=== PATIENT | female | born 1940 | race Caucasian/White ===

== ENCOUNTER 2021-01-14 00:33 | Emergency (ER) | payer MEDICARE, MEDICAID, SELFPAY ==
[2021-01-14 00:42] VITALS: BP 110/70; BP 116/54; PULSE 98; RESP 18; TEMP 36.9; O2SAT 94; O2SAT 97; BMI 23.3
[2021-01-14 01:05] VITALS: BP 116/54; PULSE 100; RESP 16; TEMP 36.9; O2SAT 97
[2021-01-14 02:23] VITALS: BP 85/44; PULSE 94; RESP 14; TEMP 36.8; O2SAT 96
[2021-01-14 05:10] LABS: Basophils Percent Auto 0.5 % (0-2); MANUAL DIFF FLAG SCAN; Mean Corpuscular Hemoglobin 28.5 pg (27.0-33.0); PLT CLUMP 1; SCAN SMEAR FLAG 1
[2021-01-14 05:11] LABS: Appearance Urine CLEAR; Color Urine YELLOW; Glucose Urine UA NEG (NEG); Leukocyte Esterase Urine TRACE (NEG); Nitrite Urine NEG (NEG); Specific Gravity - Urine <= 1.005 (1.005-1.025); UACC Culture Trigger YES; Urine Blood NEG (NEG); Urine Ketones NEG (NEG); Urine Protein NEG (NEG-TRACE)
[2021-01-14 05:12] LABS: Basophils Absolute Auto 0.1 X10*3/uL (0.0-0.2); Eosinophils Absolute Auto 0.4 X10*3/uL (0.0-0.4); Eosinophils Percent Auto 3.2 % (0-4); Hematocrit 38.7 % (37-47); Hemoglobin 12.8 g/dl (12.0-16.0); Imm Gran Abs Auto 0.03 X10*3/uL (0.00-0.03); Imm Gran Pct Auto 0.3 % (0.0-0.4); Lymphocytes Absolute Auto 1.5 X10*3/uL (1.2-4.9); Lymphocytes Percent Auto 13.2 % (20-40); Mean Corpuscular HGB Conc 33.1 g/dl (31.0-35.0); Mean Corpuscular Volume 86.2 fL (80-98); Mean Platelet Volume 10.9 fL (9.4-12.3); Monocytes Absolute Auto 0.8 X10*3/uL (0.1-1.2); Neutrophils Absolute Auto 8.3 X10*3/uL (2.0-8.3); Neutrophils Percent Auto 75.8 % (45-73); Platelet Count 154 X10*3/uL (160-400); Red Blood Count 4.49 X10*6/uL (4.20-5.50); Red Cell Distribution Width 15.4 % (11.0-16.0)
[2021-01-14 05:17] LABS: Bacteria Urine 2+ /LPF; Mucus Urine 1+ /LPF; Squamous Epithelial Cell Urine 1+ /LPF
[2021-01-14 05:26] LABS: Alanine Aminotransferase 11 U/L (0-31); Albumin Level 3.8 g/dL (3.5-5.0); Alkaline Phosphatase 102 U/L (39-117); Anion Gap 13 (12-20); Aspartate Amino Transferase 17 U/L (5-31); Bilirubin Total 0.3 mg/dL (0.0-1.0); Blood Urea Nitrogen 18 mg/dL (9-16); Calcium 9.3 mg/dL (8.4-10.2); Carbon Dioxide 28 mmol/L (22-29); Chloride 108 mmol/L (96-108); Estimated Glomerular Filt Rate > 60; Glucose Random 105 mg/dL (60-115); Lipase 12 U/L (8-78); Potassium 3.9 mmol/L (3.3-5.1); Sodium 145 mmol/L (135-145); Total Protein 6.9 g/dL (6.5-8.0)
[2021-01-14 05:34] LABS: SLIDE REVIEW VERIFIED
[2021-01-14 05:40] VITALS: BP 129/61; PULSE 104; RESP 18; O2SAT 97
--- NOTE | 2021-01-14 06:00 | ED_ITS ---
HPI - Abdominal Pain General Chief Complaint: Abdominal Pain Stated Complaint: abd pain Time Seen by Provider: 01/14/21 05:52 Source: patient Mode of arrival: EMS Limitations: other (Dementia) History of Present Illness HPI narrative: 80-year-old female who was sent to the emergency department from her long-term for evaluation of vomiting and abdominal pain. As reported that the patient had 2 episodes of emesis. The patient did tell me that she vomited several times today. She is also complaining abdominal pain. She points to epigastric area when asked to localize the pain. She cannot describe the charac ter or intensity of the pain. She told me that her medications make her mouth very dry and this causes her to vomit. The patient had no other reported symptoms from the long-term. Related Data Allergies Allergy/AdvReac Type Severity Reaction Status Date / Time No Known Allergies Allergy Unverified 12/26/19 15:07 [No Known Allergies*] Review of Systems Review of Systems Yes Unobtainable due to mental status Physical Exam Vital Signs: Vital Signs: Last Vital Signs Temp 98.3 F 01/14/21 02:23 Pulse 104 H 01/14/21 05:40 Resp 18 01/14/21 05:40 BP 129/61 01/14/21 05:40 Pulse Ox 97 01/14/21 05:40 Body Mass Index 23.3 Const: Other: Awake, alert, elderly female, does not appear to be in distress, she is pleasant and cooperative. She is oriented to person but not place or time. HENMT: Head: Yes normal to inspection, Yes normocephalic and Yes atraumatic Ears: external ears normal General nose exam: Normal external nose present Face and sinus: Yes normal facial exam Mouth: Normal oral and palatal mucosa present Teeth and gingiva: edentulous Throat: Yes posterior oropharynx normal Eyes: General: appearance normal, both eyes and all related structures Pu pils: Equal, round and reactive pupils present Neck: Neck: Yes normal visual inspection, Yes no lymphadenopathy, Yes trachea midline and Yes supple Chest: Chest palpation & inspection: normal inspection of the chest and normal palpation of entire chest wall Resp: Effort & Inspection: normal respiratory effort and able to speak in complete sentences Auscultation: clear to auscultation bilaterally Cardio: Rate: regular rate Rhythm: regular rhythm Heart sounds: S1 normal heart sound present, S2 normal heart sound present and no murmurs GI: Inspection: Yes normal to inspection Palpation (GI): Soft to palpation, nontender and no guarding Auscultation: normal bowel sounds : General: Yes no CVA tenderness Back/Spine/Pelvis: Back: no CVA tenderness Skin: General skin exam: no rashes or lesions noted Neuro: Cranial nerves: Yes CN's II-XII intact bilaterally and Yes Equal, round and reactive pupils present Motor exam (neuro): 5/5 motor strength present throughout Extrem: General: Yes normal to inspection Psych: Appearance: grossly normal Attitude: cooperative Course Course Course Narrative: 80-year-old female with history of dementia and multiple other medical issues who was sent to the emergency department from her long-term for evaluation of several episodes of vomiting and abdominal pain. The patient's vital signs were unremarkable. Physical examination revealed no abdominal tenderness. Laboratory evaluation included a CBC, CMP, lipase and urinalysis. These tests were unremarkable. At this time I suspect the patient may be vomiting secondary to her GERD or secondary to an acute viral illness. The patient was given Zofran 4 mg ODT. She was able to drink fluid. She was discharged home. MDM - Abdominal Pain Lab Data Result diagrams: 01/14/21 05:05 01/14/21 05:05 Labs: Lab Results 01/14/21 01/14/21 01/14/21 Range/Units 05:05 05:05 05:05 WBC 11.0 H (4.8-10.8) X10*3/uL RBC 4.49 (4.20-5.50) X10*6/uL Hgb 12.8 (12.0-16.0) g/dl Hct 38.7 (37-47) % MCV 86.2 (80-98) fL MCH 28.5 (27.0-33.0) pg MCHC 33.1 (31.0-35.0) g/dl RDW 15.4 (11.0-16.0) % Plt Count 154 L (160-400) X10*3/uL MPV 10.9 (9.4-12.3) fL Immature Gran % (Auto) 0.3 (0.0-0.4) % Neut % (Auto) 75.8 H (45-73) % Lymph % (Auto) 13.2 L (20-40) % [place] % (Auto) 7.0 (2-11) % Eos % (Auto) 3.2 (0-4) % Baso % (Auto) 0.5 (0-2) % Lymph # (Auto) 1.5 (1.2-4.9) X10*3/uL [place] # (Auto) 0.8 (0.1-1.2) X10*3/uL Eos # (Auto) 0.4 (0.0-0.4) X10*3/uL Baso # (Auto) 0.1 (0.0-0.2) X10*3/uL Abs Immat Gran (auto) 0.03 (0.00-0.03) X10*3/uL Absolute Neuts (auto) 8.3 (2.0-8.3) X10*3/uL Absolute Nucleated RBC 0.000 (0.0-0.012) X10*3/uL Nucleated RBC % (auto) 0.0 (0.0-0.2) /100WBC Smear Tech's Comments VERIFIED Sodium 145 (135-145) mmol/L Potassium 3.9 (3.3-5.1) mmol/L Chloride 108 (96-108) mmol/L Carbon Dioxide 28 (22-29) mmol/L Anion Gap 13 (12-20) BUN 18 H (9-16) mg/dL Creatinine 0.82 (0.5-1.4) mg/dL Estim Creat Clear Calc 52.0 Estimated GFR > 60 Random Glucose 105 (60-115) mg/dL Calcium 9.3 (8.4-10.2) mg/dL Total Bilirubin 0.3 (0.0-1.0) mg/dL AST 17 (5-31) U/L ALT 11 (0-31) U/L Alkaline Phosphatase 102 (39-117) U/L Total Protein 6.9 (6.5-8.0) g/dL Albumin 3.8 (3.5-5.0) g/dL Lipase 12 (8-78) U/L Urine Color YELLOW Urine Appearance CLEAR Urine pH 6.0 (5.0-8.0) Ur Specific [place] <= 1.005 (1.005-1.025) Urine Protein NEG (NEG-TRACE) MG/DL Urine Glucose (UA) NEG (NEG) MG/DL Urine Ketones NEG (NEG) MG/DL Urine Blood NEG (NEG) Urine Nitrite NEG (NEG) Ur Leukocyte Esterase TRACE H (NEG) Urine RBC 1-4 (0) /HPF Urine WBC 5-9 H (0-4) /HPF Ur Squamous Epith Cells 1+ /LPF Urine Bacteria 2+ /LPF Urine Mucus 1+ /LPF Discharge Plan Discharge Clinical Impression: Vomiting, Gastritis Patient Disposition: Home, Self-Care Instructions: Gastritis (ED) Additional Instructions: You had a CBC, CMP, lipase and urinalysis. All these tests were normal which is reassuring. Your vomiting is most likely due to inflammation of your stomach (gastritis). Your nausea and vomiting was treated with Zofran (ondansetron) 4 mg pills, 1 pill dissolved in your mouth. Continue taking medications as prescribed by your providers. Follow-up with your doctor in 2 days. Please return to the emergency department if your symptoms get worse or if you develop any symptoms that are concerning to you. 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 Social history: Patient denies tobacco and alcohol use. Medical History Dementia Social History Social History Advance Directives: No Advance Directives Information Provided: No
[2021-01-14] MEDS: Ondansetron ODT 4 MG TAB.RAPDIS TRANSLINGU (06:22)
--- NOTE | 2021-01-14 07:19 | PC.NURSE ---
KUMAR AVILEZ ([facility], ) CALLED [facility] AND WAS UPDATED ON PT STATUS OF RETURNING TO [facility] AT [address] [place] [address] VIA AMBULANCE. NURSE TO FACILITY REPORT WAS GIVEN TO KUMAR AVILEZ BY THIS RN. [facility] PHONE NUMBER IS [phone]. PT AWARE OF PLAN OF CARE FOR D/C HOME.
== END 2021-01-14 09:06 | disposition home or self-care (01) ==
PROVIDERS: Emergency Provider Emergency Medicine Emergency Medical Services; PCP Internal Medicine Endocrinology, Diabetes & Metabolism
DX: K29.70 Gastritis, unspecified, without bleeding (principal); E11.9 Type 2 diabetes mellitus without complications; F03.90 Unspecified dementia, unspecified severity, without behavioral disturbance, psychotic disturbance, mood disturbance, and anxiety; K21.9 Gastro-esophageal reflux disease without esophagitis
CPT/HCPCS: 36415; 80053; 81001; 83690; 85025; 87086; 99283; 99284

== ENCOUNTER 2022-01-28 18:31 | Observation (INO) | payer MEDICARE, MEDICAID, SELFPAY ==
--- NOTE | ~2022-01-28 | CT_ITS ---
EXAMINATION: NONCONTRAST MAXILLOFACIAL CT INDICATION INFORMATION: Left mouth swelling, probable angioedema COMPARISON: None TECHNIQUE: Noncontrast CT examination of the maxillofacial bones was performed. Coronal and sagittal images were created for each examination at the technologist workstation. This CT examination was performed using dose optimization techniques as appropriate, variously including the following: *Automated exposure control *Adjustment of mA and/or kV according to patient size (this includes techniques or standardized protocols for targeted exams where dose is matched to indication/reason for exam; i.e. extremities or head) *Use of iterative reconstruction technique DLP: 465 mGy-cm FINDINGS: Exam quality degraded solid by mild motion artifact. MAXILLOFACIAL: No acute facial bone fractures are seen. Complete opacification of the maxillary sinuses. Minimal mucosal thickening in the ethmoid air cells Paranasal sinuses otherwise normally aerated. The mandibular heads are normally positioned in the glenoid fossa. The patient is edentulous. Motion artifact through the mandible. No definite mandibular fracture. There is pronounced soft tissue swelling along the left side of the patient's lips and soft tissues overlying the left mandible. No appreciable loculated fluid collection. There are also appears to be swelling/edema of the buccal mucosal surface of the left oral cavity. Correlate clinically. Status post bilateral lens extractions. Globes and retro-orbital structures otherwise intact. Unremarkable appearance of the major salivary glands. No mucosal space mass identified. No appreciable swelling of the tongue to suggest glossitis. Nasopharyngeal or pharyngeal airways appear widely patent. Normal appearance of the epiglottis and base of tongue. Larynx is grossly unremarkable allowing for motion. No lymphadenopathy identified. Visualized mastoid air cells normally aerated. CT/CT facial bones wo IV con IMPRESSION: 1. Exam quality degraded by motion artifact. 2. Marked soft tissue swelling/edema involving the patient's lips, mouth, and overlying the mandible on the left side. No appreciable loculated fluid collection. 3. No acute facial bone fracture allowing for motion artifact. 4. Complete opacification of the maxillary sinuses. Correlate clinically with signs or symptoms of acute sinusitis.
[2022-01-28 18:43] VITALS: BMI 25.6
[2022-01-28 18:50] VITALS: BP 131/51; PULSE 73; RESP 18; TEMP 36.4; O2SAT 98
--- NOTE | 2022-01-28 19:08 | ED.GENADULT ---
HPI - General Adult General Chief complaint: Skin/Abscess/Foreign Body Stated complaint: facial swelling Time Seen by Provider: 01/28/22 18:56 Source: RN notes reviewed Limitations: altered mental status History of Present Illness HPI narrative: This is an 81-year-old female with history of dementia who was sent in from her facility for swelling in her left lower face. The patient states this began days ago but it is unclear how reliable she is. She denies any trouble swallowing. She does have some pain to the left side of her face. She denies having any teeth remaining. She is difficult to obtain a history from due to her dementia. Review of the records reveals she is on lisinopril 40 mg daily. A staff member from the patient's care facility later stated that the patient's symptoms began today, and then she was noted to have facial swelling after 15:00. Patient did have COVID on January 19. Related Data Previous Rx's Medication Instructions Recorded prednisone 20 mg tablet 40 mg PO DAILY #6 tabs 01/28/22 Allergies Allergy/AdvReac Type Severity Reaction Status Date / Time No Known Allergies Allergy Unverified 12/26/19 15:07 [No Known Allergies*] Review of Systems Review of Systems: Yes Unobtainable due to mental status PMFSH Past Medical History Medical History Dementia Social History Social History Alcohol intake: unknown Patient Tobacco Use Status: Former Tobacco user Use of substances other than those prescribed or required for medical reasons: Unable to respond Advance Directives: No Advance Directives Information Provided: Yes Physical Exam ED Vital Signs: Vital Signs - 24 hr 01/28/22 18:50 01/28/22 19:33 01/28/22 22:09 Temperature 97.5 F 97.5 F Pulse Rate 73 75 77 Respiratory Rate 18 16 16 Blood Pressure 131/51 L 138/66 150/80 H Pulse Oximetry 98 98 Oxygen Delivery Method Room Air Room Air BMI result Body Mass Index 25.6 Const General: no acute distress Orientation/consciousness: oriented to person HENMT Other: Swelling the left lower face from the maxillary area to the left upper lip, left cheek, left lower lip. No fluctuance, erythema, induration. No tenderness inside the mouth. Tongue is normal. No palpable parotid gland swelling. Overall appearance is consistent with angioedema. Left-sided male does droop but the nasal labial fold is normal. Patient is able to close her left eye a normally, eyes are symmetric. Droop appears to be due to swelling, not neurologic impairment Head: Yes normal to inspection General nose exam: Normal external nose present Mouth: moist mucous membranes Throat: Yes posterior oropharynx normal, Yes tonsils normal and Yes uvula midline Eyes Eyelids: Yes eyelids normal Conjunctivae: conjunctivae normal Pupils: Equal, round and reactive pupils present Neck Neck: Yes supple Resp Effort & Inspection: normal respiratory effort Auscultation: clear to auscultation bilaterally Cardio Rate: regular rate Rhythm: regular rhythm Heart sounds: S1 normal heart sound present, S2 normal heart sound present, no gallops, no murmurs and no rubs GI Inspection: No distended Palpation (GI): Soft to palpation and nontender Auscultation: normal bowel sounds Skin General skin exam: other (Warm and dry) Neuro General: oriented to person and CN's II-XI intact bilaterally Cranial nerves: Yes Equal, round and reactive pupils present Extrem General: Yes no pedal edema Psych Affect: normal affect Attitude: cooperative Medical Decision Making [facility] Narrative Medical decision making narrative: Patient on his inhibitors, specifically lisinopril, developed left cheek and left upper lip angioedema this afternoon. Initially the symptoms were so localized to the left side that appeared the patient could have focal collection. The left side of the lip was dripping but there was no decrease in the nasolabial fold, and with the obvious lip swelling this was not a stroke. Patient initially had symptoms are on the left side only but did progress to have swelling across her entire upper lip. Patient was given Decadron 10 mg IV, Benadryl 25 mg IV, Pepcid 20 mg IV. She has been re-evaluated and has had no concerning progression of symptoms. She is sleeping comfortably, had no evidence of tongue swelling, no throat symptoms. CT of the face was initially done due to the fact that the symptoms were so lateralized on the left side, and there was no evidence of any fluid collection or abscess, which fit with the clinical picture. Patient is to be admitted to the hospital, Dr. Wiley accepting Lab Data Lab results reviewed: Yes I reviewed the patient's lab results. Result diagrams: 10/21/22 22:01 01/28/22 22:01 Labs: Lab Results 01/28/22 01/28/22 01/28/22 Range/Units 22:01 22:01 22:49 WBC 7.2 (4.8-10.8) X10*3/uL RBC 4.58 (4.20-5.50) X10*6/uL Hgb 12.5 (12.0-16.0) g/dl Hct 38.4 (37.0-47.0) % MCV 83.8 (80.0-98.0) fL MCH 27.3 (27.0-33.0) pg MCHC 32.6 (31.0-35.0) g/dl RDW 15.4 (11.0-16.0) % Plt Count 286 (160-400) X10*3/uL MPV 10.1 (9.4-12.3) fL Immature Gran % (Auto) 0.6 H (0.0-0.4) % Neut % (Auto) 68.1 (45-73) % Lymph % (Auto) 16.7 L (20-40) % [place] % (Auto) 8.3 (2-11) % Eos % (Auto) 5.7 H (0-4) % Baso % (Auto) 0.6 (0-2) % Lymph # (Auto) 1.2 (1.2-4.9) X10*3/uL [place] # (Auto) 0.6 (0.1-1.2) X10*3/uL Eos # (Auto) 0.4 (0.0-0.4) X10*3/uL Baso # (Auto) 0.0 (0.0-0.2) X10*3/uL Abs Immat Gran (auto) 0.04 H (0.00-0.03) X10*3/uL Absolute Neuts (auto) 4.9 (2.0-8.3) x10*3/uL Absolute Nucleated RBC 0.000 (0.0-0.012) X10*3/uL Nucleated RBC % (auto) 0.0 (0.0-0.2) /100WBC Sodium 143 (135-145) mmol/L Potassium 4.0 (3.3-5.1) mmol/L Chloride 104 (96-108) mmol/L Carbon Dioxide 27 (22-29) mmol/L Anion Gap 16 (12-20) BUN 19 H (9-16) mg/dL Creatinine 0.72 (0.5-1.4) mg/dL Estim Creat Clear Calc 54.5 Estimated GFR > 60 Random Glucose 124 H (60-115) mg/dL Calcium 9.5 (8.4-10.2) mg/dL Total Bilirubin 0.4 (0.0-1.0) mg/dL AST 14 (5-31) U/L ALT 8 (0-31) U/L Alkaline Phosphatase 88 (39-117) U/L Total Protein 7.1 (6.5-8.0) g/dL Albumin 3.7 (3.5-5.0) g/dL COVID-19 ([facility]ACIO) Positive A (Negative) COVID-19 Clin Com See Note Imaging Data Facial CT scan: Radiologist's impression: IMPRESSION: 1.? Exam quality degraded by motion artifact. 2.? Marked soft tissue swelling/edema involving the patient's lips, mouth, and overlying the mandible on the left side. No appreciable loculated fluid collection. 3.? No acute facial bone fracture allowing for motion artifact. 4.? Complete opacification of the maxillary sinuses. Correlate clinically with signs or symptoms of acute sinusitis. Discharge Plan Discharge Clinical Impression: JT inhibitor-aggravated angioedema Patient Disposition: Admitted as Observation
[2022-01-28 19:33] VITALS: BP 138/66; PULSE 75; RESP 16; TEMP 36.4; O2SAT 98
--- NOTE | 2022-01-28 19:33 | PC.NURSE ---
ASSUMED CARE OF PATIENT AT THIS TIME ,CHANGE PATIENT INTO HOSPITAL ATTIRE ,VS TAKEN ,ASSIST PT TO USE THE BED [place] ,PATIENT VOIDED SMALL AMOUNT OF URINE ,ARTI CARE GIVEN .
--- NOTE | 2022-01-28 20:23 | PC.NURSE ---
Pt has left mandible swollen, pt reports it is painful 10/10. Pt was sleeping at the time of the assessment. will continue to monitor.
[2022-01-28 22:06] LABS: MANUAL DIFF FLAG NO
[2022-01-28 22:08] LABS: Basophils Percent Auto 0.6 % (0-2); Eosinophils Absolute Auto 0.4 X10*3/uL (0.0-0.4); Eosinophils Percent Auto 5.7 % (0-4); Hematocrit 38.4 % (37.0-47.0); Hemoglobin 12.5 g/dl (12.0-16.0); Imm Gran Abs Auto 0.04 X10*3/uL (0.00-0.03); Imm Gran Pct Auto 0.6 % (0.0-0.4); Lymphocytes Absolute Auto 1.2 X10*3/uL (1.2-4.9); Lymphocytes Percent Auto 16.7 % (20-40); Mean Corpuscular HGB Conc 32.6 g/dl (31.0-35.0); Mean Corpuscular Hemoglobin 27.3 pg (27.0-33.0); Mean Corpuscular Volume 83.8 fL (80.0-98.0); Mean Platelet Volume 10.1 fL (9.4-12.3); Monocytes Absolute Auto 0.6 X10*3/uL (0.1-1.2); Monocytes Percent Auto 8.3 % (2-11); Neutrophils Absolute Auto 4.9 x10*3/uL (2.0-8.3); Neutrophils Percent Auto 68.1 % (45-73); Platelet Count 286 X10*3/uL (160-400); Red Blood Count 4.58 X10*6/uL (4.20-5.50); Red Cell Distribution Width 15.4 % (11.0-16.0); White Blood Count 7.2 X10*3/uL (4.8-10.8)
[2022-01-28 22:09] VITALS: BP 150/80; PULSE 77; RESP 16
[2022-01-28] MEDS: diphenhydrAMINE HCL 50 MG/ML VIAL 25 MG IVPUSH (22:12)
[2022-01-28] MEDS: dexAMETHasone sod phosphate 10 MG/ML VIAL IVPUSH (22:13)
[2022-01-28] MEDS: Famotidine/PF 20 MG/2 ML VIAL IVPUSH (22:16)
--- NOTE | 2022-01-28 22:18 | PC.NURSE ---
Pt is connected to the telemetry, Pt meds were administered as order. Pt V/S are stable. Will continue to monitor.
[2022-01-28 22:37] LABS: Alanine Aminotransferase 8 U/L (0-31); Albumin Level 3.7 g/dL (3.5-5.0); Alkaline Phosphatase 88 U/L (39-117); Anion Gap 16 (12-20); Aspartate Amino Transferase 14 U/L (5-31); Bilirubin Total 0.4 mg/dL (0.0-1.0); Blood Urea Nitrogen 19 mg/dL (9-16); Calcium 9.5 mg/dL (8.4-10.2); Carbon Dioxide 27 mmol/L (22-29); Chloride 104 mmol/L (96-108); Creatinine Clr Calc Pharmacy 54.5; Estimated Glomerular Filt Rate > 60; Glucose Random 124 mg/dL (60-115); Sodium 143 mmol/L (135-145); Total Protein 7.1 g/dL (6.5-8.0)
[2022-01-28 23:23] LABS: COVID-19 Test Positive (Negative); IDNOW Serial# 55D5AD1C
[2022-01-28 23:32] VITALS: BP 119/67; PULSE 81; RESP 20; TEMP 37; O2SAT 96
[2022-01-29] MEDS: Famotidine/PF 20 MG/2 ML VIAL IVPUSH ×2 (00:51→11:11)
[2022-01-29 02:00] VITALS: BP 128/60; PULSE 90; RESP 16; TEMP 36.4; O2SAT 96
[2022-01-29] MEDS: diphenhydrAMINE HCL 50 MG/ML VIAL 25 MG IVPUSH ×4 (04:24→18:31)
--- NOTE | 2022-01-29 05:30 | P.HPHOSP_ITS ---
History of Present Illness Date of Service: 01/28/22 Chief Complaint: lip swelling 81-year-old female with past medical history of Alzheimer's dementia, dysphagia, esophageal ulcers, GERD, foot drop, HLD, HTN, iron deficiency anemia, history of melanoma, diabetes presents the hospital from retirement with findings of left cheek swelling and upper lip swelling. According to the landscaping supervisor of the retirement who was at bedside she was noted to have swelling of her upper lip as well as left cheeks since 15:00. Patient has not had any new medications, no trauma to the face, no injury, no new changes to food. Patient is sleeping, but easily arousable, denies any difficulty breathing, reports no tongue swelling, reports no trouble swallowing, denies any chest pain, no abdominal pain nausea or vomiting, no diarrhea or constipation, no urinary symptoms On arrival to the ED patient hemodynamically stable with no significant abnormal vitals Labs are significant for positive COVID, otherwise unremarkable, Face CT shows marked soft tissue swelling involving the patient's lips mouth and overlying the mandible of the left side, Patient given steroids, Benadryl, Pepcid and will be admitted for further mon itoring Review of Systems Review of Systems: Yes all other systems are reviewed and are negative PMFSH Medical History (Updated 01/29/22 @ 05:42 by Norberto Wiley MD) Alzheimer's dementia Dementia Diabetes Foot drop GERD (gastroesophageal reflux disease) History of iron deficiency anemia History of stomach ulcers Hyperlipidemia Hypertension Pertinent family history: Unknown, unable to obtain as patient has dementia Surgical History (Updated 01/29/22 @ 05:40 by Norberto Wiley MD) No pertinent past surgical history Social History Alcohol intake: unknown Patient Tobacco Use Status: Former Tobacco user Use of substances other than those prescribed or required for medical reasons: Unable to respond Advance Directives: No Advance Directives Information Provided: Yes Meds Allergies Allergy/AdvReac Type Severity Reaction Status Date / Time No Known Allergies Allergy Unverified 12/26/19 15:07 [No Known Allergies*] Active Medications: Current Medications Acetaminophen (Acetaminophen 325 Mg Tablet) 650 mg PO Q6H PRN PRN Reason: Pain, Mild (Pain Scale 1-3) Diphenhydramine HCl (Diphenhydramine Hcl 50 Mg/Ml Vial) 25 mg IVPUSH Q6H [facility] Last Admin: 01/29/22 04:24 Dose: 25 mg Docusate Sodium (Docusate Sodium 100 Mg Capsule) 100 mg PO DAILY PRN PRN Reason: Constipation Famotidine (Famotidine/Pf 20 Mg/2 Ml Vial) 20 mg IVPUSH DAILY [facility] Last Admin: 01/29/22 00:51 Dose: 20 mg Methylprednisolone Sodium Succinate (Methylprednisolone Sod Succ 40 Mg/Ml Vial) 40 mg IVPUSH Q12H [facility] Ondansetron HCl (Ondansetron Hcl 4 Mg/2 Ml Vial) 4 mg IVPUSH Q8H PRN PRN Reason: Nausea and Vomiting Physical Exam Vital Signs and Narrative: Vital Signs: Last Vital Signs Temp 97.6 F 01/29/22 02:00 Pulse 90 01/29/22 02:00 Resp 16 01/29/22 02:00 BP 128/60 01/29/22 02:00 Pulse Ox 96 01/29/22 02:00 O2 Del Method 01/29/22 02:00 BMI result Body Mass Index 25.6 Const: General: cooperative and no acute distress Orientation/consciousness : patient oriented x3 HEENT: Other: Upper lip edema, left cheek edema, no drooling, no difficulty in swallowing Eyes: General: appearance normal, both eyes and all related structures Pupils: Equal, round and reactive pupils present Resp: Other: No evidence of respiratory distress, lungs clear to auscultation Effort & Inspection: normal respiratory effort Auscultation: clear to auscultation bilaterally Cardio: Rate: regular rate Rhythm: regular rhythm GI: Palpation (GI): Soft to palpation Auscultation: normal bowel sounds Skin: General skin exam: no rashes or lesions noted Neuro: General: patient oriented x3 Cranial nerves: Yes Equal, round and reactive pupils present Cognition (Neuro): normal cognition Extrem: General: Yes normal to inspection and Yes no pedal edema Results Labs CBC and Chem 7: 01/28/22 22:01 01/28/22 22:01 Labs: Laboratory Results - last 24 hr 01/28/22 01/28/22 01/28/22 22:01 22:01 22:49 MCV 83.8 MCH 27.3 MCHC 32.6 RDW 15.4 Plt Count 286 MPV 10.1 Immature Gran % (Auto) 0.6 H Neut % (Auto) 68.1 Lymph % (Auto) 16.7 L [place] % (Auto) 8.3 Eos % (Auto) 5.7 H Baso % (Auto) 0.6 Lymph # (Auto) 1.2 [place] # (Auto) 0.6 Eos # (Auto) 0.4 Baso # (Auto) 0.0 Abs Immat Gran (auto) 0.04 H Absolute Neuts (auto) 4.9 Absolute Nucleated RBC 0.000 Nucleated RBC % (auto) 0.0 Anion Gap 16 Estim Creat Clear Calc 54.5 Estimated GFR > 60 Random Glucose 124 H Calcium 9.5 Total Bilirubin 0.4 AST 14 ALT 8 Alkaline Phosphatase 88 Total Protein 7.1 Albumin 3.7 COVID-19 ([facility]) Positive A COVID-19 Clin Com See Note Imaging Radiologist's Impressions: Impressions Face CT 01/28/22 20:20 IMPRESSION: 1. Exam quality degraded by motion artifact. 2. Marked soft tissue swelling/edema involving the patient's lips, mouth, and overlying the mandible on the left side. No appreciable loculated fluid collection. 3. No acute facial bone fracture allowing for motion artifact. 4. Complete opacification of the maxillary sinuses. Correlate clinically with signs or symptoms of acute sinusitis. Assessment and Plan (1) TJ inhibitor-aggravated angioedema: Status: Acute (2) Lab test positive for detection of COVID-19 virus: Status: Acute Plan 81-year-old female with past medical history of hypertension on lisinopril presents to the hospital with angioedema # angioedema - likely secondary to lisinopril use - no other risk factors can be identified - will treat with Solu-Medrol, Benadryl, Pepcid - stop lisinopril and any other TJ-inhibitor currently and in future - monitor respiratory status # COVID-19 infection - asymptomatic - vaccinated - monitor respiratory status # hypertension - stable - hold lisinopril Pending med rec # diabetes 0 low-dose sliding scale insulin - diabetic diet DVT prophylaxis: Heparin subQ Quality Stroke Does the patient have a stroke diagnosis?: No VTE Prior VTE?: No VTE Risk Level:: Medical - moderate - high VTE Device Contraindication: Treatment Not Indicated VTE Drug Contraindication: N/A - Med Ordered
[2022-01-29 07:14] LABS: Basophils Percent Auto 0.4 % (0-2); Eosinophils Percent Auto 0.1 % (0-4); Hematocrit 39.6 % (37.0-47.0); Imm Gran Abs Auto 0.06 X10*3/uL (0.00-0.03); Imm Gran Pct Auto 0.8 % (0.0-0.4); Lymphocytes Absolute Auto 0.5 X10*3/uL (1.2-4.9); Lymphocytes Percent Auto 6.8 % (20-40); MANUAL DIFF FLAG SCAN; Mean Corpuscular HGB Conc 32.8 g/dl (31.0-35.0); Mean Corpuscular Hemoglobin 27.3 pg (27.0-33.0); Mean Corpuscular Volume 83.2 fL (80.0-98.0); Mean Platelet Volume 11.1 fL (9.4-12.3); Monocytes Percent Auto 0.5 % (2-11); Neutrophils Percent Auto 91.4 % (45-73); Platelet Count 308 X10*3/uL (160-400); Red Blood Count 4.76 X10*6/uL (4.20-5.50); Red Cell Distribution Width 15.1 % (11.0-16.0); SCAN SMEAR FLAG 1; White Blood Count 7.6 X10*3/uL (4.8-10.8)
[2022-01-29 07:37] LABS: SLIDE REVIEW VERIFIED
[2022-01-29 08:00] LABS: Anion Gap 16 (12-20); Blood Urea Nitrogen 19 mg/dL (9-16); Calcium 9.4 mg/dL (8.4-10.2); Carbon Dioxide 28 mmol/L (22-29); Chloride 101 mmol/L (96-108); Creatinine Clr Calc Pharmacy 53.8; Estimated Glomerular Filt Rate > 60; Glucose Random 217 mg/dL (60-115); Sodium 141 mmol/L (135-145)
[2022-01-29 08:42] VITALS: BP 117/52; PULSE 83; RESP 13; TEMP 521.1; TEMP 970; O2SAT 99
--- NOTE | 2022-01-29 08:44 | PHA.MEDREC ---
Pharmacy Consult ? Medication Reconciliation RN has completed the medication reconciliation, pharmacy reviewed.
[2022-01-29 09:05] LABS: Glucose, Whole Blood 197 mg/dL (60-115)
[2022-01-29] MEDS: risperiDONE 0.25 MG TABLET PO ×2 (11:10→22:05)
[2022-01-29] MEDS: amLODIPine Besylate 5 MG TABLET PO (11:10)
[2022-01-29] MEDS: Omeprazole 20 MG CAPSULE.DR PO (11:10)
[2022-01-29] MEDS: Magnesium Oxide 400 MG TABLET PO (11:10)
[2022-01-29] MEDS: PARoxetine HCL 30 MG TABLET PO (11:10)
[2022-01-29] MEDS: carvediloL 12.5 MG TABLET PO ×2 (11:11→22:05)
[2022-01-29] MEDS: methylPREDNISolone Sod Succ 40 MG/ML VIAL IVPUSH ×2 (11:11→22:05)
[2022-01-29] MEDS: Insulin Lispro 100 UNIT/ML 3 ML VIAL SUBCUT ×3 (13:19→22:04)
[2022-01-29 13:23] LABS: Glucose, Whole Blood 176 mg/dL (60-115)
[2022-01-29 13:51] VITALS: BP 108/79; PULSE 87; RESP 19; TEMP 5521.6; TEMP 9971; O2SAT 95
--- NOTE | 2022-01-29 14:42 | MHC.CM.PN ---
RAMOS 01/29/22 FEMALE 81 DX ANGIOEDEMA COVID+ FROM [facility] BOUND TOTAL CARE DEMENTIA. [facility] X3 HCP ON FILE[facility] [phone] .. SUP [facility] [phone].
--- NOTE | 2022-01-29 17:22 | HO.PM.IMPN ---
Subjective Subjective Date of Service: 01/29/22 Interval History: Seen and examined this morning Follow-up for angioedema Patient denies any difficulty breathing, no trouble swallowing Facial swelling appears to have resolved denies cough, fever, chills Review of Systems Review of Systems: Yes all other systems are reviewed and are negative Constitutional Constitutional: Denies chills Cardiovascular Cardiovascular: Denies chest pain, Denies palpitations and Denies dyspnea Respiratory Respiratory: Denies cough and Denies dyspnea Gastrointestinal Gastrointestinal: Denies abdominal pain, Denies nausea and Denies vomiting Endocrine Endocrine: Denies palpitations Physical Exam Vital Signs: Vital Signs: Last Vital Signs Temp 9971 F H 01/29/22 13:51 Pulse 87 01/29/22 13:51 Resp 19 01/29/22 13:51 BP 108/79 01/29/22 13:51 Pulse Ox 95 01/29/22 13:51 O2 Del Method 01/29/22 13:51 BMI result Body Mass Index 25.6 Const: General: cooperative, comfortable, no acute distress, alert and awake Nutritional Appearance: thin HEENT: Other: no lip or tongue swelling; managing secretions, no difficutly swallowing Resp: Effort & Inspection: normal respiratory effort and able to speak in complete sentences Cardio: Rate: regular rate Heart sounds: S1 normal heart sound present and S2 normal heart sound present GI: Inspection: No distended Palpation (GI): Soft to palpation and nontender Neuro: Other: grossly nonfocal Extrem: Other: Moving all 4 extremities spontaneously Objective Data Active Medications Acetaminophen (Acetaminophen 325 Mg Tablet) 650 mg PO Q6H PRN PRN Reason: Pain, Mild (Pain Scale 1-3) Amlodipine Besylate (Amlodipine Besylate 5 Mg Tablet) 5 mg PO DAILY [facility]; Protocol Last Admin: 01/29/22 11:10 Dose: 5 mg Documented By: ANNALISA Atorvastatin Calcium (Atorvastatin Calcium 20 Mg Tablet) 20 mg PO BEDTIME ABDELRAHMAN Carvedilol (Carvedilol 12.5 Mg Tablet) 12.5 mg PO BID [facility]; Protocol Last Admin: 01/29/22 11:11 Dose: 12.5 mg Documented By: ANNALISA Dextrose (Dextrose 50 % 25 Gm/50 Ml Syringe) 25 gm IVPUSH Q15M PRN; Protocol PRN Reason: per Hypoglycemia Standing Ord. Diphenhydramine HCl (Diphenhydramine Hcl 50 Mg/Ml Vial) 25 mg IVPUSH Q6H [facility] Last Admin: 01/29/22 11:11 Dose: 25 mg Documented By: ANNALISA Docusate Sodium (Docusate Sodium 100 Mg Capsule) 100 mg PO DAILY PRN PRN Reason: Constipation Famotidine (Famotidine/Pf 20 Mg/2 Ml Vial) 20 mg IVPUSH DAILY [facility] Last Admin: 01/29/22 11:11 Dose: 20 mg Documented By: ANNALISA Glucose (Glucose Gel 15 Gm Gel..Gram.) 15 gm PO Q15M PRN; Protocol PRN Reason: per Hypoglycemia Standing Ord. Heparin Sodium (Porcine) (Heparin Sodium,Porcine 5,000 Unit/Ml Vial) 5,000 unit SUBCUT Q12H [facility] Last Admin: 01/29/22 10:53 Dose: Not Given Documented By: KERLINE Non-Admin Reason: not my pt during thsi time Insulin Human Lispro (Insulin Lispro 100 Unit/Ml 3 Ml Vial) 0 unit SUBCUT QIDACHS [facility]; Protocol Last Admin: 01/29/22 13:19 Dose: 2 unit Documented By: ANNALISA Magnesium Oxide (Magnesium Oxide 400 Mg Tablet) 400 mg PO DAILY [facility] Last Admin: 01/29/22 11:10 Dose: 400 mg Documented By: ANNALISA Methylprednisolone Sodium Succinate (Methylprednisolone Sod Succ 40 Mg/Ml Vial) 40 mg IVPUSH Q12H [facility] Last Admin: 01/29/22 11:11 Dose: 40 mg Documented By: ANNALISA Non-Formulary Medication (Methenamine Hippurate) 1 gm PO BID [facility] Last Admin: 01/29/22 12:26 Dose: Not Given Documented By: ANNALISA Non-Admin Reason: pt is here for observation- grouphome Omeprazole (Omeprazole 20 Mg Capsule.) 20 mg PO DAILY@0630 [facility] Last Admin: 01/29/22 11:10 Dose: 20 mg Documented By: ANNALISA Ondansetron HCl (Ondansetron Hcl 4 Mg/2 Ml Vial) 4 mg IVPUSH Q8H PRN PRN Reason: Nausea and Vomiting Paroxetine HCl (Paroxetine Hcl 30 Mg Tablet) 30 mg PO DAILY [facility] Last Admin: 01/29/22 11:10 Dose: 30 mg Documented By: ANNALISA Risperidone (Risperidone 0.25 Mg Tablet) 0.25 mg PO BID [facility] Last Admin: 01/29/22 11:10 Dose: 0.25 mg Documented By: ANNALISA Labs CBC & Chem 7: 01/29/22 06:19 01/29/22 06:19 Labs: Laboratory Results - last 24 hr 01/28/22 01/28/22 01/28/22 22:01 22:01 22:49 MCV 83.8 MCH 27.3 MCHC 32.6 RDW 15.4 Plt Count 286 MPV 10.1 Immature Gran % (Auto) 0.6 H Neut % (Auto) 68.1 Lymph % (Auto) 16.7 L Call[place] % (Auto) 8.3 Eos % (Auto) 5.7 H Baso % (Auto) 0.6 Lymph # (Auto) 1.2 [place] # (Auto) 0.6 Eos # (Auto) 0.4 Baso # (Auto) 0.0 Abs Immat Gran (auto) 0.04 H Absolute Neuts (auto) 4.9 Absolute Nucleated RBC 0.000 Nucleated RBC % (auto) 0.0 Smear Tech's Comments Anion Gap 16 Estim Creat Clear Calc 54.5 Estimated GFR > 60 POC Glucose Random Glucose 124 H Calcium 9.5 Total Bilirubin 0.4 AST 14 ALT 8 Alkaline Phosphatase 88 Total Protein 7.1 Albumin 3.7 COVID-19 (HORACIO) Positive A COVID-19 Clin Com See Note 01/29/22 01/29/22 01/29/22 06:19 06:19 08:57 MCV 83.2 MCH 27.3 MCHC 32.8 RDW 15.1 Plt Count 308 MPV 11.1 Immature Gran % (Auto) 0.8 H Neut % (Auto) 91.4 H Lymph % (Auto) 6.8 L [place] % (Auto) 0.5 L Eos % (Auto) 0.1 Baso % (Auto) 0.4 Lymph # (Auto) 0.5 L [place] # (Auto) 0.0 L Eos # (Auto) 0.0 Baso # (Auto) 0.0 Abs Immat Gran (auto) 0.06 H Absolute Neuts (auto) 7.0 Absolute Nucleated RBC 0.000 Nucleated RBC % (auto) 0.0 Smear Tech's Comments VERIFIED Anion Gap 16 Estim Creat Clear Calc 53.8 Estimated GFR > 60 POC Glucose 197 H Random Glucose 217 H Calcium 9.4 Total Bilirubin AST ALT Alkaline Phosphatase Total Protein Albumin COVID-19 (HORACIO) COVID-19 Clin Com 01/29/22 13:09 MCV MCH MCHC RDW Plt Count MPV Immature Gran % (Auto) Neut % (Auto) Lymph % (Auto) Callaway % (Auto) Eos % (Auto) Baso % (Auto) Lymph # (Auto) [place] # (Auto) Eos # (Auto) Baso # (Auto) Abs Immat Gran (auto) Absolute Neuts (auto) Absolute Nucleated RBC Nucleated RBC % (auto) Smear Tech's Comments Anion Gap Estim Creat Clear Calc Estimated GFR POC Glucose 176 H Random Glucose Calcium Total Bilirubin AST ALT Alkaline Phosphatase Total Protein Albumin COVID-19 (HORACIO) COVID-19 Clin Com Assessment and Plan (1) TJ inhibitor-aggravated angioedema: Status: Acute (2) Lab test positive for detection of COVID-19 virus: Status: Acute Plan 81-year-old female with past medical history of hypertension on lisinopril presents to the hospital with angioedema angioedema swelling improved. no hypoxia, shortness of breath or difficulty swallowing - likely secondary to lisinopril use - will treat with Solu-Medrol, Benadryl, Pepcid - stop lisinopril and any other TJ-inhibitor currently and in future - monitor respiratory status COVID-19 infection asymptomatic and no hypoxia - vaccinated - monitor respiratory status hypertension - stable - d/c lisinopril -continue norvasc, metoprolol Pending med rec diabetes hold metformin SSI, POCs - diabetic diet Continue other baseline medications DVT prophylaxis: Heparin subQ attending - dr. elizalde Quality Stroke Does the patient have a stroke diagnosis?: No VTE Prior VTE?: No VTE Risk Level:: Medical - moderate - high VTE Device Contraindication: Treatment Not Indicated VTE Drug Contraindication: N/A - Med Ordered
[2022-01-29] MEDS: Heparin Sodium,Porcine 5,000 UNIT/ML VIAL 5000 UNIT SUBCUT (17:36)
[2022-01-29 18:28] VITALS: BP 106/39; PULSE 83; RESP 16; TEMP 36.5; O2SAT 98
[2022-01-29 18:35] VITALS: BP 117/62
[2022-01-29 18:38] LABS: Glucose, Whole Blood 258 mg/dL (60-115)
--- NOTE | 2022-01-29 19:22 | PC.NURSE ---
Report given to oncoming ANSHUL Reilly at this time.
[2022-01-29 21:40] LABS: Glucose, Whole Blood 291 mg/dL (60-115)
[2022-01-29] MEDS: Atorvastatin Calcium 20 MG TABLET PO (22:05)
[2022-01-30 00:24] VITALS: BP 116/50; PULSE 85; RESP 20; TEMP 35.7; O2SAT 99
[2022-01-30 06:00] VITALS: BP 126/63; PULSE 87; RESP 16; TEMP 36.4; O2SAT 100
[2022-01-30] MEDS: diphenhydrAMINE HCL 50 MG/ML VIAL 25 MG IVPUSH (06:00)
[2022-01-30] MEDS: Omeprazole 20 MG CAPSULE.DR PO (06:01)
[2022-01-30] MEDS: Heparin Sodium,Porcine 5,000 UNIT/ML VIAL 5000 UNIT SUBCUT ×2 (06:01→17:52)
[2022-01-30 08:08] LABS: Glucose, Whole Blood 209 mg/dL (60-115)
[2022-01-30] MEDS: Insulin Lispro 100 UNIT/ML 3 ML VIAL SUBCUT ×4 (09:22→20:31)
[2022-01-30] MEDS: risperiDONE 0.25 MG TABLET PO ×2 (09:23→20:31)
[2022-01-30] MEDS: Magnesium Oxide 400 MG TABLET PO (09:23)
[2022-01-30] MEDS: Famotidine/PF 20 MG/2 ML VIAL IVPUSH (09:23)
[2022-01-30] MEDS: methylPREDNISolone Sod Succ 40 MG/ML VIAL IVPUSH (09:23)
[2022-01-30] MEDS: amLODIPine Besylate 5 MG TABLET PO (09:23)
[2022-01-30] MEDS: carvediloL 12.5 MG TABLET PO ×2 (09:23→20:31)
[2022-01-30] MEDS: PARoxetine HCL 30 MG TABLET PO (09:23)
--- NOTE | 2022-01-30 09:55 | HO.PM.IMPN ---
Subjective Subjective Date of Service: 01/30/22 Interval History: seen and examined this morning follow up for angioedema, covid 19 no further swelling appreciated no sob, no hypoxia poor historian, difficult to obtain full ROS Physical Exam Vital Signs: Vital Signs: Last Vital Signs Temp 97.6 F 01/30/22 06:00 Pulse 87 01/30/22 06:00 Resp 16 01/30/22 06:00 BP 126/63 01/30/22 06:00 Pulse Ox 100 01/30/22 06:00 O2 Del Method 01/30/22 06:00 BMI result Body Mass Index 25.6 Const: General: cooperative, comfortable, no acute distress, alert and awake Nutritional Appearance: thin HEENT: Other: no lip or tongue swelling; managing secretions, no difficutly swallowing Resp: Effort & Inspection: normal respiratory effort and able to speak in complete sentences Auscultation: diminished lung sounds Cardio: Rate: regular rate Heart sounds: S1 normal heart sound present and S2 normal heart sound present GI: Inspection: No distended Palpation (GI): Soft to palpation and nontender Neuro: Other: grossly nonfocal frequent lip smacking Extrem: Other: Moving all 4 extremities spontaneously Objective Data Active Medications Acetaminophen (Acetaminophen 325 Mg Tablet) 650 mg PO Q6H PRN PRN Reason: Pain, Mild (Pain Scale 1-3) Amlodipine Besylate (Amlodipine Besylate 5 Mg Tablet) 5 mg PO DAILY [facility]; Protocol Last Admin: 01/30/22 09:23 Dose: 5 mg Documented By: ANNALISA Atorvastatin Calcium (Atorvastatin Calcium 20 Mg Tablet) 20 mg PO BEDTIME [facility] Last Admin: 01/29/22 22:05 Dose: 20 mg Documented By: KAROLINA Carvedilol (Carvedilol 12.5 Mg Tablet) 12.5 mg PO BID [facility]; Protocol Last Admin: 01/30/22 09:23 Dose: 12.5 mg Documented By: ANNALISA Dextrose (Dextrose 50 % 25 Gm/50 Ml Syringe) 25 gm IVPUSH Q15M PRN; Protocol PRN Reason: per Hypoglycemia Standing Ord. Docusate Sodium (Docusate Sodium 100 Mg Capsule) 100 mg PO DAILY PRN PRN Reason: Constipation Famotidine (Famotidine/Pf 20 Mg/2 Ml Vial) 20 mg IVPUSH DAILY [facility] Last Admin: 01/30/22 09:23 Dose: 20 mg Documented By: ANNALISA Glucose (Glucose Gel 15 Gm Gel..Gram.) 15 gm PO Q15M PRN; Protocol PRN Reason: per Hypoglycemia Standing Ord. Heparin Sodium (Porcine) (Heparin Sodium,Porcine 5,000 Unit/Ml Vial) 5,000 unit SUBCUT Q12H [facility] Last Admin: 01/30/22 06:01 Dose: 5,000 unit Documented By: BIBIANA Insulin Human Lispro (Insulin Lispro 100 Unit/Ml 3 Ml Vial) 0 unit SUBCUT QIDACHS [facility]; Protocol Last Admin: 01/30/22 09:22 Dose: 6 unit Documented By: ANNALISA Magnesium Oxide (Magnesium Oxide 400 Mg Tablet) 400 mg PO DAILY [facility] Last Admin: 01/30/22 09:23 Dose: 400 mg Documented By: ANNALISA Non-Formulary Medication (Methenamine Hippurate) 1 gm PO BID [facility] Last Admin: 01/29/22 12:26 Dose: Not Given Documented By: ANNALISA Non-Admin Reason: pt is here for observation- grouphome Omeprazole (Omeprazole 20 Mg Capsule.) 20 mg PO DAILY@0630 [facility] Last Admin: 01/30/22 06:01 Dose: 20 mg Documented By: BIBIANA Ondansetron HCl (Ondansetron Hcl 4 Mg/2 Ml Vial) 4 mg IVPUSH Q8H PRN PRN Reason: Nausea and Vomiting Paroxetine HCl (Paroxetine Hcl 30 Mg Tablet) 30 mg PO DAILY [facility] Last Admin: 01/30/22 09:23 Dose: 30 mg Documented By: ANNALISA Risperidone (Risperidone 0.25 Mg Tablet) 0.25 mg PO BID [facility] Last Admin: 01/30/22 09:23 Dose: 0.25 mg Documented By: ANNALISA Labs CBC & Chem 7: 01/29/22 06:19 01/29/22 06:19 Labs: Laboratory Results - last 24 hr 01/29/22 01/29/22 01/29/22 13:09 18:26 21:34 POC Glucose 176 H 258 H 291 H 01/30/22 07:55 POC Glucose 209 H Assessment and Plan (1) TJ inhibitor-aggravated angioedema: Status: Acute (2) Lab test positive for detection of COVID-19 virus: Status: Acute Plan 81-year-old female with past medical history of hypertension on lisinopril presents to the hospital with angioedema angioedema swelling improved. no hypoxia, shortness of breath or difficulty swallowing likely secondary to lisinopril use s/p tx with Solu-Medrol, Benadryl, Pepcid stop lisinopril. Avoid TJ-inhibitor in future COVID-19 infection asymptomatic, no hypoxia vaccinated monitor respiratory status hypertension BP stable d/c lisinopril continue norvasc, metoprolol diabetes hold metformin SSI, POCs diabetic diet Continue other baseline medications DVT prophylaxis: Heparin subQ attending - dr. Us Dispo: unable to return to [facility] until tomorrow Quality Stroke Does the patient have a stroke diagnosis?: No VTE Prior VTE?: No VTE Risk Level:: Medical - moderate - high VTE Device Contraindication: Treatment Not Indicated VTE Drug Contraindication: N/A - Med Ordered
[2022-01-30 12:10] LABS: Glucose, Whole Blood 180 mg/dL (60-115)
[2022-01-30 15:33] VITALS: BP 118/56; PULSE 79; RESP 16; TEMP 35.9; O2SAT 95
[2022-01-30 16:00] VITALS: BP 117/62; PULSE 76; RESP 19; TEMP 36.9
--- NOTE | 2022-01-30 16:45 | PC.NURSE ---
Isolation precautions maintained. Report given to [facility] RN. Safety and fall precautions in place, call garcia within reach.
[2022-01-30 17:19] LABS: Glucose, Whole Blood 264 mg/dL (60-115)
[2022-01-30 18:33] VITALS: BP 119/60; PULSE 88; RESP 19; TEMP 36.3
[2022-01-30 18:54] VITALS: BP 119/60; PULSE 88; RESP 19; TEMP 36.7
[2022-01-30 20:15] LABS: Glucose, Whole Blood 203 mg/dL (60-115)
[2022-01-30] MEDS: Acetaminophen 325 MG TABLET 650 MG PO (20:30)
[2022-01-30] MEDS: Atorvastatin Calcium 20 MG TABLET PO (20:31)
[2022-01-31] VITALS: BP 141/68; PULSE 79; RESP 16; TEMP 36.8; O2SAT 100
[2022-01-31 03:30] VITALS: BP 130/78; PULSE 91; RESP 15; TEMP 36.5; O2SAT 99
[2022-01-31] MEDS: Omeprazole 20 MG CAPSULE.DR PO (05:28)
[2022-01-31] MEDS: Heparin Sodium,Porcine 5,000 UNIT/ML VIAL 5000 UNIT SUBCUT ×2 (05:29→17:13)
[2022-01-31 07:21] VITALS: BP 131/58; PULSE 79; RESP 20; TEMP 36; O2SAT 98
[2022-01-31 07:56] LABS: Glucose, Whole Blood 181 mg/dL (60-115)
[2022-01-31] MEDS: Famotidine/PF 20 MG/2 ML VIAL IVPUSH (08:50)
[2022-01-31] MEDS: Insulin Lispro 100 UNIT/ML 3 ML VIAL SUBCUT ×2 (08:50→12:02)
[2022-01-31] MEDS: amLODIPine Besylate 5 MG TABLET PO (08:50)
[2022-01-31] MEDS: risperiDONE 0.25 MG TABLET PO (08:51)
[2022-01-31] MEDS: Magnesium Oxide 400 MG TABLET PO (08:51)
[2022-01-31] MEDS: carvediloL 12.5 MG TABLET PO (08:51)
[2022-01-31] MEDS: PARoxetine HCL 30 MG TABLET PO (08:51)
[2022-01-31 11:13] LABS: Glucose, Whole Blood 151 mg/dL (60-115)
[2022-01-31 11:26] VITALS: BP 116/57; PULSE 72; RESP 20; TEMP 36.4; O2SAT 100
--- NOTE | 2022-01-31 12:08 | PC.NURSE ---
Addendum entered by Roxann Carranza RN 01/31/22 12:09: ANSHUL Klein= [phone] Original Note: Nurse to nurse report given to ANSHUL Klein (N) primary RN caring for patient at [facility] at this time.
--- NOTE | 2022-01-31 12:19 | P.DS_ITS ---
DS: Providers Provider Date of Service: 01/31/22 Date of admission: 01/28/22 23:31 Primary care physician: Unknown Physician Attending physician on discharge: Clem Silverman Discharging clinician: Alyson Finney DS: Diagnosis Discharge Diagnosis (1) OSMAN inhibitor-aggravated angioedema: Status: Acute (2) Lab test positive for detection of COVID-19 virus: Status: Acute DS: Summary Hospital Course Hospital Course: HP as per admitting provider 81-year-old female with past medical history of Alzheimer's dementia, dysphagia, esophageal ulcers, GERD, foot drop, HLD, HTN, iron deficiency anemia, history of melanoma, diabetes presents the hospital from assisted with findings of left cheek swelling and upper lip swelling.? According to the supervisor drilling and shooting of the assisted who was at bedside she was noted to have swelling of her upper lip as well as left cheeks since 15:00.? Patient has not had any new medications, no trauma to the face, no injury, no new changes to food.? Patient is sleeping, but easily arousable, denies any difficulty breathing, reports no tongue swelling, reports no trouble swallowing, denies any chest pain, no abdominal pain nausea or vomiting, no diarrhea or constipation, no urinary symptoms On arrival to the ED patient? hemodynamically stable with no significant abnormal vitals Labs are significant for positive COVID, otherwise unremarkable, Face CT shows marked soft tissue swelling involving the patient's lips mouth and overlying the mandible of the left side, Patient given steroids, Benadryl, Pepcid and will be admitted for further monitoring Angioedema swelling improved. no hypoxia, shortness of breath or difficulty swallowing secondary to lisinopril use s/p tx with Solu-Medrol, Benadryl, Pepcid stopped lisinopril. Avoid OSMAN-inhibitor in future COVID-19 infection asymptomatic, no hypoxia vaccinated hypertension BP stable d/c lisinopril continue norvasc, metoprolol diabetes Continue home medications Time Spent with Patient Time attestation: Total time spent providing and/or coordinating discharge services: Discharge coordination time: Greater than 30 minutes Quality: Safe Use of Opioids Does Pt have an Active Cancer Diagnosis on the Problem List?: No Quality: Stroke Does the patient have a stroke diagnosis?: No Physical Exam Vital Signs: Vital Signs: Last Vital Signs Temp 97.5 F 01/31/22 11:26 Pulse 72 01/31/22 11:26 Resp 20 01/31/22 11:26 BP 116/57 L 01/31/22 11:26 Pulse Ox 100 01/31/22 11:26 O2 Del Method 01/31/22 11:26 FiO2 100 01/30/22 18:54 BMI result Body Mass Index 25.6 Appearing in no acute distress head is normocephalic atraumatic eyes pupils are PERRLA sclera is anicteric mouth throat mucous membranes are intact and moist neck is supple no lymphadenopathy, no JVD noted lung sounds are clear to auscultation heart regular rate rhythm, clear S1, S2 positive bowel sounds, abdomen is soft, nontender neuro patient is alert, confused DS: Data Data Completed and Pending Labs on day of discharge: Laboratory Results - last 24 hr 01/30/22 01/30/22 01/31/22 17:15 20:05 07:26 POC Glucose 264 H 203 H 181 H 01/31/22 11:02 POC Glucose 151 H Discharge Plan Discharge Anticipated Discharge Date/Time: 01/31/22 12:15 Patient Disposition: Home Health Service Discharge Diagnosis: Angioedema COVID-19 Discharge Medications: Continued atorvastatin 20 mg tablet 1 tab PO BEDTIME omeprazole 20 mg capsule,delayed release(DR/EC) 20 mg PO DAILY alendronate 70 mg tablet 1 tab PO QWEEK risperidone 0.25 mg tablet 1 tab PO BID amlodipine 5 mg tablet 1 tab PO DAILY methenamine hippurate 1 gram tablet 1 g PO BID paroxetine HCl 30 mg tablet 1 tab PO DAILY metformin 500 mg tablet extended release 24 hr 500 mg PO BID carvedilol 12.5 mg Tablet 12.5 mg PO BID Rx Instructions: must administer with a meal/food aspirin 81 mg Tablet,Delayed Release (Dr/Ec) 81 mg PO DAILY loratadine [Claritin] 10 mg Tablet 10 mg PO DAILY magnesium oxide 400 mg magnesium Tablet 400 mg PO DAILY Discontinued lisinopril 20 mg tablet 40 mg PO DAILY Discharge Orders: Discharge Order (Routine); Ordered 01/31/22 Ordered By: Alyson Finney Diet: Advance to usual diet Activity on Discharge: As tolerated Stand Alone Forms: Patient Portal Discharge page Activity Restrictions/Additional Instructions: Stop taking lisinopril and do not use any other Osman inhibitor in the future. Return for any worsened symptoms such as increased lip swelling, tongue swelling, difficulty swallowing or breathing. Care Plan Goals: No further episodes of angioedema Health Concerns: Angioedema secondary to OSMAN-inhibitor Plan of Treatment: Lisinopril has been stopped avoid Osman inhibitors in the future Follow-up with primary care provider as needed Take all medications as prescribed Assessment: See discharge summary Patient Instructions: Angioedema (ED)
[2022-01-31 15:12] VITALS: BP 138/67; PULSE 83; RESP 18; TEMP 36.9; O2SAT 97
[2022-01-31 16:05] LABS: Glucose, Whole Blood 136 mg/dL (60-115)
--- NOTE | 2022-01-31 16:27 | MHC.CM.PN ---
IMM 01/31/22 Female Covid+ is discharged today. She will return to [facility]. All dc info has been sent to the . The MD orders required have been completed and faxed to the [facility] Transport is booked for 6pm paramedic supervisor
== END 2022-01-31 18:43 | disposition other institution (70) ==
LOC: HO.ED 21:27 → HO.EDOVER 23:42 → HO.IMC 01-30 14:50
PROVIDERS: Physician Assistant Medical; Admitting Provider Internal Medicine; Emergency Provider Emergency Medicine; PCP Internal Medicine; Visit Provider Nurse Practitioner Acute Care
DX: U07.1 COVID-19 (principal); T78.3XXA Angioneurotic edema, initial encounter; T46.4X5A Adverse effect of angiotensin-converting-enzyme inhibitors, initial encounter; Y92.129 Unspecified place in nursing home as the place of occurrence of the external cause; I10 Essential (primary) hypertension; E11.9 Type 2 diabetes mellitus without complications; E78.5 Hyperlipidemia, unspecified; K21.9 Gastro-esophageal reflux disease without esophagitis; R13.10 Dysphagia, unspecified; D50.9 Iron deficiency anemia, unspecified; G30.9 Alzheimer's disease, unspecified; F02.80 Dementia in other diseases classified elsewhere, unspecified severity, without behavioral disturbance, psychotic disturbance, mood disturbance, and anxiety; Z87.891 Personal history of nicotine dependence; Z79.899 Other long term (current) drug therapy; Z79.02 Long term (current) use of antithrombotics/antiplatelets; Z79.82 Long term (current) use of aspirin; Z79.84 Long term (current) use of oral hypoglycemic drugs
CPT/HCPCS: 36415; 70486; 80048; 80053; 82947; 85025; 87635; 96372; 96374; 96375; 96376; 99219; 99284; 99285; J1100; J1200; J2920

== ENCOUNTER 2022-03-10 14:17 | Emergency (ER) | payer MEDICARE, MEDICAID, SELFPAY ==
--- NOTE | ~2022-03-10 | XR_ITS ---
EXAMINATION: XR CHEST CLINICAL INFORMATION: rhonchi COMPARISON: August 2019 TECHNIQUE: AP upright portable view of the chest was obtained. 3:10 PM FINDINGS: New patchy opacities observed right upper lobe and medial left base, suspicious for infiltrates. The pulmonary vascularity appears to be stable. No distinct pleural effusions. Incidental note of generalized gaseous distention of bowel. XR/XR chest 1V IMPRESSION: New bilateral patchy opacities suspicious for infiltrates. No pleural effusions seen.
--- NOTE | 2022-03-10 14:22 | ED.GENADULT ---
HPI - General Adult General Chief complaint: General Medical Stated complaint: ?UTI Time Seen by Provider: 03/10/22 14:21 Source: patient and EMS Mode of arrival: EMS Limitations: altered mental status History of Present Illness HPI narrative: 82 yo female with history of Alzheimer's dementia [facility] for evaluation of left lung rattling. There was also concern for UTI as she was found to smell of urine. She reportedly has a congested cough, unknown when it started. The staff at her [facility] noticed she had a change in her mentation, may be more confused than usual. She denied have any difficulty breathing and there was no respiratory distress per EMS. EMS noted strong urine odor. She was not following commands for an accurate lung assessment per EMS. Her vital signs were stable and she did not require supplemental O2. She is brought to the ER for further evaluation. MD complaint: Abnormal lung sounds, congested cough, AMS Onset (ago): unknown Location: chest Pain Consistency: intermittent Relieving factors: none Exacerbating factors: none Associated symptoms: denies other symptoms Treatments prior to arrival: none Related Data Home Medications Medication Instructions Recorded Confirmed alendronate 70 mg tablet 1 tab PO QWEEK 01/29/22 03/10/22 amlodipine 5 mg tablet 1 tab PO DAILY 01/29/22 03/10/22 aspirin 81 mg tablet,delayed 81 mg PO DAILY 01/29/22 03/10/22 release atorvastatin 20 mg tablet 1 tab PO BEDTIME 01/29/22 03/10/22 carvedilol 12.5 mg tablet 12.5 mg PO BID 01/29/22 03/10/22 loratadine 10 mg tablet (Claritin) 10 mg PO DAILY 01/29/22 03/10/22 magnesium oxide 400 mg PO DAILY 01/29/22 03/10/22 metformin 500 mg tablet,extended 500 mg PO BID 01/29/22 03/10/22 release 24 hr methenamine hippurate 1 gram tablet 1 g PO BID 01/29/22 03/10/22 omeprazole 20 mg capsule,delayed 20 mg PO DAILY 01/29/22 03/10/22 release paroxetine HCl 30 mg tablet 1 tab PO DAILY 01/29/22 03/10/22 risperidone 0.25 mg tablet 1 tab PO BID 01/29/22 03/10/22 ascorbic acid (vitamin C) 500 mg 500 mg PO DAILY 03/10/22 03/10/22 tablet calcium carbonate 600 mg-vitamin 1 tab PO DAILY 03/10/22 03/10/22 D3 5 mcg (200 unit) tablet Previous Rx's Medication Instructions Recorded amoxicillin 875 mg-potassium 1 tab PO Q12H #20 tabs 03/10/22 clavulanate 125 mg tablet guaifenesin 1,200 mg tablet, 1,200 mg PO BID #14 tabs 03/10/22 extended release 12 hr (Mucinex) Allergies Allergy/AdvReac Type Severity Reaction Status Date / Time TJ Inhibitors Allergy Severe Angioedema Verified 01/31/22 02:02 Review of Systems Review of Systems: Yes Unobtainable due to mental condition and Unobtainable due to mental status [facility] Past Medical History Medical History (Updated 03/10/22 @ 16:30 by YESY Silverio) Alzheimer's dementia Dementia Diabetes Foot drop GERD (gastroesophageal reflux disease) History of iron deficiency anemia History of stomach ulcers Hyperlipidemia Hypertension Lab test positive for detection of COVID-19 virus Surgical History (Updated 01/29/22 @ 05:40 by Norberto Wiley MD) No pertinent past surgical history Social History Social History Household Members: Unknown / Unable to assess Housing: Unknown / Unable to assess Unable to assess alcohol history related to: Unknown Alcohol intake: unknown Patient Tobacco Use Status: Tobacco use Unknown Advance Directives: Yes Advance Directives on File: Yes Advance Directives Date on File: 01/29/22 service: No Current occupational status: disabled Physical Exam ED Vital Signs: Vital Signs - 24 hr 03/10/22 14:35 03/10/22 14:45 Temperature 98.1 F Pulse Rate 121 H 119 H Respiratory Rate 16 16 Blood Pressure 124/47 L 128/47 L Pulse Oximetry 96 96 Oxygen Delivery Method Room Air Room Air BMI result Body Mass Index 21.8 Appearance: Alert. Oriented X2. No acute distress. Eyes: Pupils equal, round and reactive to light. ENT: Pharynx with moist mucous membranes, no dentition present Neck: Normal inspection. Neck supple. CVS: Normal heart rate and rhythm. Pulses normal. Respiratory: No respiratory distress. Breath sounds with scattered rhonchi in the right lung. Left lung appears clear Abdomen: Soft and nontender. +BS x4 Skin: Skin warm and dry. Normal skin color. Normal skin turgor. No rashes. Extremities: No lower extremity edema. Neuro: Oriented X 2. Moving all extremities and following simple commands. Meowing like a car Course Course Course Narrative: 82-year-old female with history of Alzheimer's dementia presenting to the ER for evaluation of change in mentation, rattling lung sounds and question of UTI with foul urine smell. She is hemodynamically stable, although late slightly tachycardic when she is agitated. Will get chest x-ray, urinalysis via straight cath and basic lab workup. Reevaluation(s) Reevaluation #1: Initial EKG tachycardic to 120 when agitated. Will repeat once more calm. Labs showed WBC 10.9. Otherwise unremarkable. Urinalysis is not consistent with infection. Chest x-ray shows patchy bilateral opacities consistent with pneumonia. She remains on room air saturating well. She has a congested cough. Not septic. Will start on Augmentin for pneumonia. Comfortable discharge home as she is not requiring supplemental oxygen and clinically appears in no distress, breathing comfortably. Medications Administered Discontinued Medications Generic Name Dose Route Start Last Admin Trade Name Freq PRN Reason Stop Dose Admin Amoxicillin/Clavulanate Potassium 875 mg 03/10/22 16:29 03/10/22 17:23 Amoxicillin/Potassium Clav 875 Mg Tablet PO 03/10/22 16:30 875 mg ONCE ONE Administration Medical Decision Making Lab Data Result diagrams: 03/10/22 14:57 03/10/22 14:57 Labs: Lab Results 03/10/22 03/10/22 03/10/22 Range/Units 14:57 14:57 14:57 WBC 10.9 H (4.8-10.8) X10*3/uL RBC 4.28 (4.20-5.50) X10*6/uL Hgb 11.7 L (12.0-16.0) g/dl Hct 36.8 L (37.0-47.0) % MCV 86.0 (80.0-98.0) fL MCH 27.3 (27.0-33.0) pg MCHC 31.8 (31.0-35.0) g/dl RDW 16.4 H (11.0-16.0) % Plt Count 215 D (160-400) X10*3/uL MPV 11.1 (9.4-12.3) fL Immature Gran % (Auto) 0.4 (0.0-0.4) % Neut % (Auto) 85.3 H (45-73) % Lymph % (Auto) 5.8 L (20-40) % [place] % (Auto) 8.0 (2-11) % Eos % (Auto) 0.2 (0-4) % Baso % (Auto) 0.3 (0-2) % Lymph # (Auto) 0.6 L (1.2-4.9) X10*3/uL [place] # (Auto) 0.9 (0.1-1.2) X10*3/uL Eos # (Auto) 0.0 (0.0-0.4) X10*3/uL Baso # (Auto) 0.0 (0.0-0.2) X10*3/uL Abs Immat Gran (auto) 0.04 H (0.00-0.03) X10*3/uL Absolute Neuts (auto) 9.3 H (2.0-8.3) x10*3/uL Absolute Nucleated RBC 0.000 (0.0-0.012) X10*3/uL Nucleated RBC % (auto) 0.0 (0.0-0.2) /100WBC Sodium 144 (135-145) mmol/L Potassium 3.9 (3.3-5.1) mmol/L Chloride 107 (96-108) mmol/L Carbon Dioxide 29 (22-29) mmol/L Anion Gap 12 (12-20) BUN 16 (9-16) mg/dL Creatinine 0.93 (0.5-1.4) mg/dL Estim Creat Clear Calc 34.0 Estimated GFR 58 Random Glucose 285 H (60-115) mg/dL Calcium 9.8 (8.4-10.2) mg/dL Magnesium 1.7 (1.6-2.6) mg/dL Total Bilirubin 0.5 (0.0-1.0) mg/dL Direct Bilirubin 0.2 (0.0-0.5) mg/dL AST 12 (5-31) U/L ALT 8 (0-31) U/L Alkaline Phosphatase 93 (39-117) U/L Total Protein 6.7 (6.5-8.0) g/dL Albumin 3.6 (3.5-5.0) g/dL Urine Color Urine Appearance Urine pH (5.0-9.0) Ur Specific [place] (1.005-1.025) Urine Protein (Neg-Trace) mg/dL Urine Glucose (UA) (Negative) mg/dL Urine Ketones (Negative) mg/dL Urine Blood (Negative) Urine Nitrite (Negative) Ur Leukocyte Esterase (Negative) Urine RBC (0-2) /HPF Urine WBC (0-5) /HPF Ur Squamous Epith Cells (0-2) /HPF Urine Bacteria (None Seen) Hyaline Casts (0-2) /LPF COVID-19 (HORACIO) Negative (Negative) COVID-19 Clin Com See Note 03/10/22 Range/Units 14:57 WBC (4.8-10.8) X10*3/uL RBC (4.20-5.50) X10*6/uL Hgb (12.0-16.0) g/dl Hct (37.0-47.0) % MCV (80.0-98.0) fL MCH (27.0-33.0) pg MCHC (31.0-35.0) g/dl RDW (11.0-16.0) % Plt Count (160-400) X10*3/uL MPV (9.4-12.3) fL Immature Gran % (Auto) (0.0-0.4) % Neut % (Auto) (45-73) % Lymph % (Auto) (20-40) % [place] % (Auto) (2-11) % Eos % (Auto) (0-4) % Baso % (Auto) (0-2) % Lymph # (Auto) (1.2-4.9) X10*3/uL [place] # (Auto) (0.1-1.2) X10*3/uL Eos # (Auto) (0.0-0.4) X10*3/uL Baso # (Auto) (0.0-0.2) X10*3/uL Abs Immat Gran (auto) (0.00-0.03) X10*3/uL Absolute Neuts (auto) (2.0-8.3) x10*3/uL Absolute Nucleated RBC (0.0-0.012) X10*3/uL Nucleated RBC % (auto) (0.0-0.2) /100WBC Sodium (135-145) mmol/L Potassium (3.3-5.1) mmol/L Chloride (96-108) mmol/L Carbon Dioxide (22-29) mmol/L Anion Gap (12-20) BUN (9-16) mg/dL Creatinine (0.5-1.4) mg/dL Estim Creat Clear Calc Estimated GFR Random Glucose (60-115) mg/dL Calcium (8.4-10.2) mg/dL Magnesium (1.6-2.6) mg/dL Total Bilirubin (0.0-1.0) mg/dL Direct Bilirubin (0.0-0.5) mg/dL AST (5-31) U/L ALT (0-31) U/L Alkaline Phosphatase (39-117) U/L Total Protein (6.5-8.0) g/dL Albumin (3.5-5.0) g/dL Urine Color Dark Yellow Urine Appearance Clear Urine pH 5.5 (5.0-9.0) Ur Specific [place] >= 1.030 H (1.005-1.025) Urine Protein 100 (2+) H (Neg-Trace) mg/dL Urine Glucose (UA) 250 H (Negative) mg/dL Urine Ketones Trace (Negative) mg/dL Urine Blood Negative (Negative) Urine Nitrite Negative (Negative) Ur Leukocyte Esterase Trace H (Negative) Urine RBC 0-2 (0-2) /HPF Urine WBC 0-5 (0-5) /HPF Ur Squamous Epith Cells 6-10 (0-2) /HPF Urine Bacteria None Seen (None Seen) Hyaline Casts 0-2 (0-2) /LPF COVID-19 (HORACIO) (Negative) COVID-19 Clin Com ECG Data Attestation: I personally reviewed and interpreted this ECG as follows: Prior ECG tracings: available for review Interpretation: 1) @ 14:46 - sinus tachycardia, short MS interval 56ms, no appreciated ST segment elevations, 2) @ 16:22 - sinus rhythm with PVCs, ventricular rate 97 beats per minute, normal MS interval, normal QTC, no ST segment elevations or depressions Critical Care Time Critical Care Time Critical Care Time: No Discharge Plan Discharge Clinical Impression: Pneumonia Patient Disposition: Home, Self-Care Instructions: Pneumonia (ED) Additional Instructions: Your chest x-ray showed evidence of bilateral pneumonia. Your oxygen levels were normal. Take the prescribed antibiotic for this. Rest and stay hydrated. Prescriptions: New amoxicillin-pot clavulanate 875-125 mg tablet 1 tab PO Q12H Qty: 20 0RF Mucinex 1,200 mg tablet extended release 12hr 1,200 mg PO BID Qty: 14 0RF No Action atorvastatin 20 mg tablet 1 tab PO BEDTIME omeprazole 20 mg capsule,delayed release(DR/EC) 20 mg PO DAILY alendronate 70 mg tablet 1 tab PO QWEEK risperidone 0.25 mg tablet 1 tab PO BID amlodipine 5 mg tablet 1 tab PO DAILY methenamine hippurate 1 gram tablet 1 g PO BID paroxetine HCl 30 mg tablet 1 tab PO DAILY metformin 500 mg tablet extended release 24 hr 500 mg PO BID carvedilol 12.5 mg Tablet 12.5 mg PO BID Rx Instructions: must administer with a meal/food aspirin 81 mg Tablet,Delayed Release (Dr/Ec) 81 mg PO DAILY loratadine [Claritin] 10 mg Tablet 10 mg PO DAILY magnesium oxide 400 mg magnesium Tablet 400 mg PO DAILY calcium carbonate-vitamin D3 [Calcium + D] 600 mg-5 mcg (200 unit) Tablet 1 tab PO DAILY ascorbic acid (vitamin C) 500 mg Tablet 500 mg PO DAILY
--- NOTE | 2022-03-10 14:27 | ECG_ITS ---
Test Reason : ALTERED MENTAL Blood Pressure : / mmHG Vent. Rate : 120 BPM Atrial Rate : 120 BPM P-R Int : 056 ms QRS Dur : 084 ms QT Int : 328 ms P-R-T Axes : 000 068 072 degrees QTc Int : 463 ms Sinus tachycardia with short [place] Nonspecific ST and T wave abnormality Abnormal ECG When compared with ECG of 17-AUG-2019 11:10, Nonspecific T wave abnormality now evident in Lateral leads Referred By: Sara Harris Electronically Signed By:Harshil Bella
[2022-03-10 14:35] VITALS: BP 124/47; PULSE 121; RESP 16; O2SAT 96; BMI 21.8
[2022-03-10 14:45] VITALS: BP 128/47; PULSE 119; RESP 16; TEMP 36.7; O2SAT 96
[2022-03-10 15:03] LABS: MANUAL DIFF FLAG NO
[2022-03-10 15:06] LABS: Basophils Percent Auto 0.3 % (0-2); Eosinophils Percent Auto 0.2 % (0-4); Hematocrit 36.8 % (37.0-47.0); Hemoglobin 11.7 g/dl (12.0-16.0); Imm Gran Abs Auto 0.04 X10*3/uL (0.00-0.03); Imm Gran Pct Auto 0.4 % (0.0-0.4); Lymphocytes Absolute Auto 0.6 X10*3/uL (1.2-4.9); Lymphocytes Percent Auto 5.8 % (20-40); Mean Corpuscular HGB Conc 31.8 g/dl (31.0-35.0); Mean Corpuscular Hemoglobin 27.3 pg (27.0-33.0); Mean Platelet Volume 11.1 fL (9.4-12.3); Monocytes Absolute Auto 0.9 X10*3/uL (0.1-1.2); Neutrophils Absolute Auto 9.3 x10*3/uL (2.0-8.3); Neutrophils Percent Auto 85.3 % (45-73); Platelet Count 215 X10*3/uL (160-400); Red Blood Count 4.28 X10*6/uL (4.20-5.50); Red Cell Distribution Width 16.4 % (11.0-16.0); White Blood Count 10.9 X10*3/uL (4.8-10.8)
[2022-03-10 15:07] LABS: Appearance Urine Clear; Color Urine Dark Yellow; Glucose Urine UA 250 mg/dL (Negative); Leukocyte Esterase Urine Trace (Negative); Nitrite Urine Negative (Negative); PH 5.5 (5.0-9.0); Specific Gravity - Urine >= 1.030 (1.005-1.025); UMIC TRIGGER UACC YES; Urine Blood Negative (Negative); Urine Ketones Trace mg/dL (Negative); Urine Protein 100 (2+) mg/dL (Neg-Trace)
[2022-03-10 15:21] LABS: COVID-19 Test Negative (Negative); IDNOW Serial# 16C4AD1C
[2022-03-10 15:28] LABS: Alanine Aminotransferase 8 U/L (0-31); Albumin Level 3.6 g/dL (3.5-5.0); Alkaline Phosphatase 93 U/L (39-117); Anion Gap 12 (12-20); Aspartate Amino Transferase 12 U/L (5-31); Bilirubin Direct 0.2 mg/dL (0.0-0.5); Bilirubin Total 0.5 mg/dL (0.0-1.0); Blood Urea Nitrogen 16 mg/dL (9-16); Calcium 9.8 mg/dL (8.4-10.2); Carbon Dioxide 29 mmol/L (22-29); Chloride 107 mmol/L (96-108); Estimated Glomerular Filt Rate 58; Glucose Random 285 mg/dL (60-115); Magnesium 1.7 mg/dL (1.6-2.6); Potassium 3.9 mmol/L (3.3-5.1); Sodium 144 mmol/L (135-145); Total Protein 6.7 g/dL (6.5-8.0)
[2022-03-10 15:45] LABS: Bacteria Urine None Seen (None Seen); Hyaline Casts Urine 0-2 /LPF (0-2); RBC Urine 0-2 /HPF (0-2); WBC Urine 0-5 /HPF (0-5)
--- NOTE | 2022-03-10 15:52 | PC.NURSE ---
PT CONTINUES TO HAVE UNCONTROLLED MOVEMENTS FROM WHAT EVER SHE TOOK. CONTINUES TO IS EASILY DIRECTED VERSED/ZYPREXA GIVEN TO [facility]LEP WITH MOVEMENTS
--- NOTE | 2022-03-10 16:22 | ECG_ITS ---
Test Reason : REPEAT Blood Pressure : / mmHG Vent. Rate : 097 BPM Atrial Rate : 097 BPM P-R Int : 114 ms QRS Dur : 088 ms QT Int : 360 ms P-R-T Axes : 050 069 037 degrees QTc Int : 457 ms Sinus rhythm with Premature supraventricular complexes Otherwise normal ECG When compared with ECG of 10-MAR-2022 14:46, Premature supraventricular complexes are now Present Referred By: Sara Harris Electronically Signed By:Harshil Bella
--- NOTE | 2022-03-10 16:55 | PHA.MEDREC ---
Pharmacy Consult ? Medication Reconciliation Pharmacy has completed the medication reconciliation. Patient had list from [facility] which matched claim history. Fidencio SegundoD
[2022-03-10] MEDS: Amoxicillin/Potassium Clav 875 MG TABLET PO (17:23)
--- NOTE | 2022-03-10 18:56 | PC.NURSE ---
Mushtaq called at 1830 for a bls transport back home to [address] [place] [address] in [facility] withing the hour.Rn aware
== END 2022-03-10 19:21 | disposition home or self-care (01) ==
PROVIDERS: Physician Assistant; Emergency Provider Emergency Medicine; PCP Internal Medicine
DX: J18.9 Pneumonia, unspecified organism (principal); R00.0 Tachycardia, unspecified; Z20.822 Contact with and (suspected) exposure to COVID-19; G30.9 Alzheimer's disease, unspecified; F02.80 Dementia in other diseases classified elsewhere, unspecified severity, without behavioral disturbance, psychotic disturbance, mood disturbance, and anxiety; E11.9 Type 2 diabetes mellitus without complications; I10 Essential (primary) hypertension; E78.5 Hyperlipidemia, unspecified; Z79.82 Long term (current) use of aspirin; Z79.02 Long term (current) use of antithrombotics/antiplatelets; Z79.84 Long term (current) use of oral hypoglycemic drugs; Z79.899 Other long term (current) drug therapy
CPT/HCPCS: 51701; 71045; 80048; 80076; 81001; 83735; 85025; 87635; 93005; 99284

== ENCOUNTER 2022-09-04 06:49 | Inpatient (IN) | payer MEDICARE, MEDICAID, SELFPAY ==
[2022-09-04] VITALS (21 sets, daily range): BP systolic 107–151; BP diastolic 35–63; PULSE 89–116; RESP 16–38; TEMP 36.3–38; O2SAT 83–98; BMI 20.8; BMI 22.4
--- NOTE | ~2022-09-04 | CT_ITS ---
EXAMINATION: CT ANGIOGRAM OF THE CHEST WITH AND WITHOUT CONTRAST (CT PULMONARY ANGIOGRAM FOR PE) CLINICAL INFORMATION: Reason for Exam Acute hypoxic?pe COMPARISON: CT chest 08/17/2019 TECHNIQUE: Prior to contrast administration, noncontrast localization images were obtained. Subsequently, multidetector volumetric imaging was performed from the thoracic inlet to below the diaphragms following the administration of 80 mL Omnipaque 350 intravenous contrast. No contrast reaction reported Sagittal, coronal, and MIP oblique sagittal reformatted images were obtained on the CT workstation, uploaded to PACS, and reviewed. This CT examination was performed using dose optimization techniques as appropriate, variously including the following: *Automated exposure control *Adjustment of mA and/or kV according to patient size (this includes techniques or standardized protocols for targeted exams where dose is matched to indication/reason for exam; i.e. extremities or head) *Use of iterative reconstruction technique Total exam dose-length product 233 mGy-cm FINDINGS: QUALITY OF STUDY/CONTRAST BOLUS: Satisfactory. PULMONARY ARTERIES: No pulmonary emboli. THORACIC AORTA: No aneurysm. LUNG: The lungs are expanded with patchy consolidative pattern right upper lobe and both lower lobes basilar segments consistent with infiltrates. Ill-defined groundglass opacities are seen in the right upper lobe likely developing small infiltrates. PLEURA: No pleural effusion or pneumothorax. MEDIASTINUM: The heart size is normal. No pericardial effusion. There are bilateral hilar and mediastinal reactive lymph nodes. Thyroid lobes are symmetrical and normal. The central trachea and the bronchi widely patent. No evidence of septal bowing or right heart strain. CORONARY ARTERY CALCIFICATION: Mild coronary artery calcifications are seen. CHEST WALL/AXILLA: No axillary or internal mammary lymphadenopathy. OSSEOUS STRUCTURES: No aggressive lytic or sclerotic process seen. There is anterior wedging of T12 vertebra likely chronic and unchanged to 08/17/2019 exam UPPER ABDOMEN: There is a small hypodense lesion along the dome of left liver consistent with cysts, unchanged from the last CT chest exam. No additional lesions seen Spleen, pancreas and gallbladder appears unremarkable. No reflux of contrast into the hepatic veins to suggest elevated right heart pressures. CT/CT angio chest PE protocol IMPRESSION: No evidence of PE. No evidence of aortic aneurysm or dissection. Right lower lobe lobe and bilateral lower lobe dependent basilar infiltrates. Abnormal reactive bilateral hilar and mediastinal lymph nodes. VTE: negative
--- NOTE | ~2022-09-04 | XR_ITS ---
EXAMINATION: XR CHEST CLINICAL INFORMATION: Shortness of breath COMPARISON: X-ray 03/10/2022 TECHNIQUE: Frontal view of the chest was obtained. FINDINGS: Stable cardiomediastinal silhouette. Aortic arch calcification. Stable elevation right hemidiaphragm. Multifocal airspace opacities seen in the right mid and lower lung, new/worsened from previous. Patchy retrocardiac opacity suspected. No pleural effusion. No pneumothorax is seen.. XR/XR chest 1V IMPRESSION: Airspace opacities in the right mid and lower lung, and in the retrocardiac region suspicious for infiltrates.
--- NOTE | 2022-09-04 06:57 | ECG_ITS ---
Test Reason : [facility] Blood Pressure : / mmHG Vent. Rate : 106 BPM Atrial Rate : 106 BPM P-R Int : 124 ms QRS Dur : 084 ms QT Int : 348 ms P-R-T Axes : 064 073 048 degrees QTc Int : 462 ms Sinus tachycardia Nonspecific ST abnormality Abnormal ECG When compared with ECG of 10-MAR-2022 17:31, Premature supraventricular complexes are no longer Present Nonspecific T wave abnormality, worse in Lateral leads Referred By: Generic ED Physician Electronically Signed By:DEBBIE HICKS
--- NOTE | 2022-09-04 07:06 | ED.SOB ---
HPI - SOB/Dyspnea General Chief Complaint: Dyspnea Stated Complaint: unresponsive Time Seen by Provider: 09/04/22 07:05 History of Present Illness HPI Narrative: 81-year-old female with past medical history of Alzheimer's dementia, dysphagia, esophageal ulcers, GERD, foot drop, HLD, HTN, iron deficiency anemia, history of melanoma, lung cancer, diabetes?came from [facility] for unresponsiveness patient had difficulty breathing and was unresponsive when EMS arrived responding to only painful stimuli saturating 71% on room air per EMS an RV was placed with no improvement switch to BVM for mechanical ventilation EMS noted short run of V-tach currently patient is on CPAP at 10 with FiO2 24% Related Data Home Medications Medication Instructions Recorded Confirmed alendronate 70 mg tablet 1 tab PO BURRIS 01/29/22 09/04/22 amlodipine 5 mg tablet 1 tab PO DAILY 01/29/22 09/04/22 aspirin 81 mg tablet,delayed 81 mg PO DAILY 01/29/22 09/04/22 release atorvastatin 20 mg tablet 1 tab PO BEDTIME 01/29/22 09/04/22 carvedilol 12.5 mg tablet 12.5 mg PO BID 01/29/22 09/04/22 loratadine 10 mg tablet (Claritin) 10 mg PO DAILY 01/29/22 09/04/22 magnesium oxide 400 mg PO BID 01/29/22 09/04/22 metformin 500 mg tablet,extended 500 mg PO BID@0800,1700 01/29/22 09/04/22 release 24 hr methenamine hippurate 1 gram tablet 1 g PO BID@0800,1700 01/29/22 09/04/22 omeprazole 20 mg capsule,delayed 20 mg PO DAILY 01/29/22 09/04/22 release paroxetine HCl 30 mg tablet 1 tab PO DAILY 01/29/22 09/04/22 ascorbic acid (vitamin C) 500 mg 500 mg PO DAILY 03/10/22 09/04/22 tablet calcium carbonate 600 mg-vitamin 1 tab PO DAILY 03/10/22 09/04/22 D3 5 mcg (200 unit) tablet acetaminophen 325 mg tablet 650 mg PO Q6H PRN Pain 09/04/22 09/04/22 polyethylene glycol 3350 17 gram 17 g PO DAILY PRN Constipation 09/04/22 09/04/22 oral powder packet risperidone 0.5 mg tablet 0.5 mg PO DAILY@1600 09/04/22 09/04/22 Allergies Allergy/AdvReac Type Severity Reaction Status Date / Time TJ Inhibitors Allergy Severe Angioedema Verified 01/31/22 02:02 Review of Systems Review of Systems: Yes Unobtainable due to mental condition [facility] Past Medical History Medical History Alzheimer's dementia Asthma CAD (coronary artery disease) Cardiomyopathy CHF (congestive heart failure) Dementia Depression with anxiety Diabetes DJD (degenerative joint disease) Dysphagia Foot drop GERD (gastroesophageal reflux disease) Hiatal hernia History of iron deficiency anemia History of stomach ulcers Hyperlipidemia Hypertension Lab test positive for detection of COVID-19 virus Surgical History No pertinent past surgical history Social History Social History Household Members: Unknown / Unable to assess Housing: Unknown / Unable to assess Unable to assess alcohol history related to: Unknown Alcohol intake: unknown Patient Tobacco Use Status: Tobacco use Unknown Advance Directives: Yes Advance Directives on File: Yes Advance Directives Date on File: 01/29/22 service: No Current occupational status: disabled Physical Exam Vital Signs: Vital Signs: Last Vital Signs Temp 99 F 09/04/22 14:41 Pulse 89 09/04/22 14:41 Resp 24 H 09/04/22 14:41 BP 128/56 L 09/04/22 14:41 Pulse Ox 98 09/04/22 14:41 O2 Del Method Nasal Cannula 09/04/22 14:41 O2 Flow Rate 3 09/04/22 14:41 BMI result Body Mass Index 20.8 Appearance: Lethargic. With acute respiratory distress on CPAP Eyes: PERRLA, No Nystagmus ENT: Pharynx normal. Oral Mucosa moist Neck: Normal inspection. Neck supple. CVS: Normal heart rate and rhythm. Pulses normal. Respiratory: No respiratory distress. Equal air entry bilateral, bilateral rales at bases Abdomen: Soft and nontender. Bowel sounds are present, no mass palpable, Skin: Skin warm and dry. Normal skin color. Normal skin turgor. Extremities: Trace lower extremity edema. No calf tenderness Neuro: Lethargic moving all 4 extremities to painful stimuli. Medications Administered Generic Name Dose Route Start Last Admin Trade Name Freq PRN Reason Stop Dose Admin Enoxaparin Sodium 40 mg 09/04/22 16:00 09/04/22 15:19 Enoxaparin Sodium 40 Mg/0.4 Ml Syringe SUBCUT 40 mg Q24H ABDELRAHMAN Administration Cefepime HCl 2 gm/ Sodium 50 mls @ 100 mls/hr 09/04/22 16:00 09/04/22 15:20 Chloride IV 100 mls/hr Q12H ABDELRAHMAN Administration Sodium Chloride 1,000 mls @ 75 mls/hr 09/04/22 15:15 09/04/22 15:14 Ns IVCONT 75 mls/hr .[id number] ABDELRAHMAN Administration Sodium Chloride 3 ml 09/04/22 16:00 09/04/22 15:22 0.9 % Sodium Chloride Flush 3 Ml Syringe IVFLUSH Not Given QSHIFT ABDELRAHMAN Discontinued Medications Generic Name Dose Route Start Last Admin Trade Name Freq PRN Reason Stop Dose Admin Furosemide 20 mg 09/04/22 07:12 09/04/22 07:36 Furosemide 20 Mg/2 Ml Vial IVPUSH 09/04/22 07:13 20 mg ONCE ONE Administration Protocol Furosemide 20 mg 09/04/22 08:12 09/04/22 08:20 Furosemide 20 Mg/2 Ml Vial IVPUSH 09/04/22 08:13 20 mg ONCE ONE Administration Protocol Ceftriaxone Sodium 1 gm/ 50 mls @ 100 mls/hr 09/04/22 07:53 09/04/22 08:50 Sodium Chloride IV 09/04/22 08:22 Infused ONCE ONE Infusion Sodium Chloride 1,000 mls @ 999 mls/hr 09/04/22 08:56 09/04/22 12:54 Ns IV 09/04/22 09:56 Infused .Q1H1M ONE Infusion Piperacillin Sod/Tazobactam 50 mls @ 100 mls/hr 09/04/22 09:57 09/04/22 12:54 Sod 3.375 gm/ Sodium Chloride IV 09/04/22 10:26 Infused ONCE ONE Infusion Iohexol 65 ml 09/04/22 09:27 09/04/22 09:28 Iohexol 350 Mg/Ml 100 Ml Infus..Btl IV 09/04/22 09:28 65 ml ONCE ONE Administration Medical Decision Making Medical Decision Making MDM Narrative: Patient's acute hypoxia workup showed bilateral infiltrate with mediastinal lymph node enlargement CTA negative for PE patient's oxygenation improved at this time patient is saturating 96% on 3 L received IV antibiotics admit patient for acute hypoxic failure with pneumonia Differential Diagnosis CHF, pulmonary edema/acute pneumonia/pneumothorax Consult Healthcare Provider Management of the patient was discussed with: Hospitalist Lab Data MDM Lab Attestation statement: I reviewed the patient's lab results. 09/04/22 07:53 09/04/22 07:53 Labs: Lab Results 09/04/22 09/04/22 09/04/22 Range/Units 06:54 07:53 07:53 WBC 6.7 (4.8-10.8) X10*3/uL RBC 4.66 (4.20-5.50) X10*6/uL Hgb 11.9 L (12.0-16.0) g/dl Hct 38.2 (37.0-47.0) % MCV 82.0 (80.0-98.0) fL MCH 25.5 L (27.0-33.0) pg MCHC 31.2 (31.0-35.0) g/dl RDW 18.0 H (11.0-16.0) % Plt Count 198 (160-400) X10*3/uL MPV 11.3 (9.4-12.3) fL Immature Gran % (Auto) Cancelled Neut % (Auto) Cancelled Lymph % (Auto) Cancelled [place] % (Auto) Cancelled Eos % (Auto) Cancelled Baso % (Auto) Cancelled Lymph # (Auto) Cancelled [place] # (Auto) Cancelled Eos # (Auto) Cancelled Baso # (Auto) Cancelled Abs Immat Gran (auto) Cancelled Absolute Neuts (auto) Cancelled Absolute Nucleated RBC 0.000 (0.0-0.012) X10*3/uL Nucleated RBC % (auto) 0.0 (0.0-0.2) /100WBC Neutrophils % (Manual) 32 L (45-73) % Band Neutrophils % 52 H (3-5) % Lymphocytes % (Manual) 4 L (20-40) % Monocytes % (Manual) 8 (2-11) % Metamyelocytes % 4 % Abs Neuts (Manual) 5.6 (2.0-8.3) X10*3/uL Lymphocytes # (Manual) 0.3 L (1.2-4.9) X10*3/uL Monocytes # (Manual) 0.5 (0.1-1.2) X10*3/uL Metamyelocytes # 0.3 X10*3/uL Platelet Estimate NORMAL (NORMAL) Plt Morphology Comment NORMAL RBC Morphology NORMAL PT (10.0-13.1) SEC INR (0.9-1.1) APTT (26.0-36.4) SEC VBG pH (7.32-7.43) VBG pCO2 mmHg VBG pO2 mmHg VBG HCO3 (22-26) mmol/L VBG O2 Saturation % VBG Base Excess mmol/L Sodium 143 (135-145) mmol/L Potassium 3.9 (3.3-5.1) mmol/L Chloride 107 (96-108) mmol/L Carbon Dioxide 27 (22-29) mmol/L Anion Gap 13 (12-20) BUN 30 H (9-16) mg/dL Creatinine 0.98 (0.5-1.4) mg/dL Estim Creat Clear Calc 32.3 Estimated GFR 54 POC Glucose 192 H (60-115) mg/dL Random Glucose 200 H (60-115) mg/dL Lactic Acid (0.5-2.0) mmol/L Calcium 10.3 H (8.4-10.2) mg/dL Magnesium 1.8 (1.6-2.6) mg/dL Total Bilirubin 0.6 (0.0-1.0) mg/dL AST 14 (5-31) U/L ALT 8 (0-31) U/L Alkaline Phosphatase 85 (39-117) U/L Troponin I High Sens (<3.5-17.0) ng/L B-Natriuretic Peptide (<100) pg/mL Total Protein 7.0 (6.5-8.0) g/dL Albumin 3.7 (3.5-5.0) g/dL Urine Color Urine Appearance Urine pH (5.0-9.0) Ur Specific [place] (1.005-1.025) Urine Protein (Neg-Trace) mg/dL Urine Glucose (UA) (Negative) mg/dL Urine Ketones (Negative) mg/dL Urine Blood (Negative) Urine Nitrite (Negative) Ur Leukocyte Esterase (Negative) Urine RBC (0-2) /HPF Urine WBC (0-5) /HPF Ur Squamous Epith Cells (0-2) /HPF Urine Bacteria (None Seen) Hyaline Casts (0-2) /LPF COVID-19 (HORACIO) (Negative) COVID-19 Clin Com Influenza Type A (DULCE) (Negative) Influenza Type B (DULCE) (Negative) Influenza A & B Note 09/04/22 09/04/22 09/04/22 Range/Units 07:53 07:53 07:53 WBC (4.8-10.8) X10*3/uL RBC (4.20-5.50) X10*6/uL Hgb (12.0-16.0) g/dl Hct (37.0-47.0) % MCV (80.0-98.0) fL MCH (27.0-33.0) pg MCHC (31.0-35.0) g/dl RDW (11.0-16.0) % Plt Count (160-400) X10*3/uL MPV (9.4-12.3) fL Immature Gran % (Auto) Neut % (Auto) Lymph % (Auto) [place] % (Auto) Eos % (Auto) Baso % (Auto) Lymph # (Auto) [place] # (Auto) Eos # (Auto) Baso # (Auto) Abs Immat Gran (auto) Absolute Neuts (auto) Absolute Nucleated RBC (0.0-0.012) X10*3/uL Nucleated RBC % (auto) (0.0-0.2) /100WBC Neutrophils % (Manual) (45-73) % Band Neutrophils % (3-5) % Lymphocytes % (Manual) (20-40) % Monocytes % (Manual) (2-11) % Metamyelocytes % % Abs Neuts (Manual) (2.0-8.3) X10*3/uL Lymphocytes # (Manual) (1.2-4.9) X10*3/uL Monocytes # (Manual) (0.1-1.2) X10*3/uL Metamyelocytes # X10*3/uL Platelet Estimate (NORMAL) Plt Morphology Comment RBC Morphology PT 12.1 (10.0-13.1) SEC INR 1.1 (0.9-1.1) APTT 27.3 (26.0-36.4) SEC VBG pH (7.32-7.43) VBG pCO2 mmHg VBG pO2 mmHg VBG HCO3 (22-26) mmol/L VBG O2 Saturation % VBG Base Excess mmol/L Sodium (135-145) mmol/L Potassium (3.3-5.1) mmol/L Chloride (96-108) mmol/L Carbon Dioxide (22-29) mmol/L Anion Gap (12-20) BUN (9-16) mg/dL Creatinine (0.5-1.4) mg/dL Estim Creat Clear Calc Estimated GFR POC Glucose (60-115) mg/dL Random Glucose (60-115) mg/dL Lactic Acid 1.5 (0.5-2.0) mmol/L Calcium (8.4-10.2) mg/dL Magnesium (1.6-2.6) mg/dL Total Bilirubin (0.0-1.0) mg/dL AST (5-31) U/L ALT (0-31) U/L Alkaline Phosphatase (39-117) U/L Troponin I High Sens 3.6 (<3.5-17.0) ng/L B-Natriuretic Peptide (<100) pg/mL Total Protein (6.5-8.0) g/dL Albumin (3.5-5.0) g/dL Urine Color Urine Appearance Urine pH (5.0-9.0) Ur Specific [place] (1.005-1.025) Urine Protein (Neg-Trace) mg/dL Urine Glucose (UA) (Negative) mg/dL Urine Ketones (Negative) mg/dL Urine Blood (Negative) Urine Nitrite (Negative) Ur Leukocyte Esterase (Negative) Urine RBC (0-2) /HPF Urine WBC (0-5) /HPF Ur Squamous Epith Cells (0-2) /HPF Urine Bacteria (None Seen) Hyaline Casts (0-2) /LPF COVID-19 (HORACIO) (Negative) COVID-19 Clin Com Influenza Type A (DULCE) (Negative) Influenza Type B (DULCE) (Negative) Influenza A & B Note 09/04/22 09/04/22 09/04/22 Range/Units 07:53 08:15 08:15 WBC (4.8-10.8) X10*3/uL RBC (4.20-5.50) X10*6/uL Hgb (12.0-16.0) g/dl Hct (37.0-47.0) % MCV (80.0-98.0) fL MCH (27.0-33.0) pg MCHC (31.0-35.0) g/dl RDW (11.0-16.0) % Plt Count (160-400) X10*3/uL MPV (9.4-12.3) fL Immature Gran % (Auto) Neut % (Auto) Lymph % (Auto) [place] % (Auto) Eos % (Auto) Baso % (Auto) Lymph # (Auto) [place] # (Auto) Eos # (Auto) Baso # (Auto) Abs Immat Gran (auto) Absolute Neuts (auto) Absolute Nucleated RBC (0.0-0.012) X10*3/uL Nucleated RBC % (auto) (0.0-0.2) /100WBC Neutrophils % (Manual) (45-73) % Band Neutrophils % (3-5) % Lymphocytes % (Manual) (20-40) % Monocytes % (Manual) (2-11) % Metamyelocytes % % Abs Neuts (Manual) (2.0-8.3) X10*3/uL Lymphocytes # (Manual) (1.2-4.9) X10*3/uL Monocytes # (Manual) (0.1-1.2) X10*3/uL Metamyelocytes # X10*3/uL Platelet Estimate (NORMAL) Plt Morphology Comment RBC Morphology PT (10.0-13.1) SEC INR (0.9-1.1) APTT (26.0-36.4) SEC VBG pH (7.32-7.43) VBG pCO2 mmHg VBG pO2 mmHg VBG HCO3 (22-26) mmol/L VBG O2 Saturation % VBG Base Excess mmol/L Sodium (135-145) mmol/L Potassium (3.3-5.1) mmol/L Chloride (96-108) mmol/L Carbon Dioxide (22-29) mmol/L Anion Gap (12-20) BUN (9-16) mg/dL Creatinine (0.5-1.4) mg/dL Estim Creat Clear Calc Estimated GFR POC Glucose (60-115) mg/dL Random Glucose (60-115) mg/dL Lactic Acid (0.5-2.0) mmol/L Calcium (8.4-10.2) mg/dL Magnesium (1.6-2.6) mg/dL Total Bilirubin (0.0-1.0) mg/dL AST (5-31) U/L ALT (0-31) U/L Alkaline Phosphatase (39-117) U/L Troponin I High Sens (<3.5-17.0) ng/L B-Natriuretic Peptide 107 H (<100) pg/mL Total Protein (6.5-8.0) g/dL Albumin (3.5-5.0) g/dL Urine Color Urine Appearance Urine pH (5.0-9.0) Ur Specific [place] (1.005-1.025) Urine Protein (Neg-Trace) mg/dL Urine Glucose (UA) (Negative) mg/dL Urine Ketones (Negative) mg/dL Urine Blood (Negative) Urine Nitrite (Negative) Ur Leukocyte Esterase (Negative) Urine RBC (0-2) /HPF Urine WBC (0-5) /HPF Ur Squamous Epith Cells (0-2) /HPF Urine Bacteria (None Seen) Hyaline Casts (0-2) /LPF COVID-19 (HORACIO) Negative (Negative) COVID-19 Clin Com See Note Influenza Type A (DULCE) Negative (Negative) Influenza Type B (DULCE) Negative (Negative) Influenza A & B Note See Note 09/04/22 09/04/22 09/04/22 Range/Units 09:37 09:53 14:46 WBC (4.8-10.8) X10*3/uL RBC (4.20-5.50) X10*6/uL Hgb (12.0-16.0) g/dl Hct (37.0-47.0) % MCV (80.0-98.0) fL MCH (27.0-33.0) pg MCHC (31.0-35.0) g/dl RDW (11.0-16.0) % Plt Count (160-400) X10*3/uL MPV (9.4-12.3) fL Immature Gran % (Auto) Neut % (Auto) Lymph % (Auto) [place] % (Auto) Eos % (Auto) Baso % (Auto) Lymph # (Auto) [place] # (Auto) Eos # (Auto) Baso # (Auto) Abs Immat Gran (auto) Absolute Neuts (auto) Absolute Nucleated RBC (0.0-0.012) X10*3/uL Nucleated RBC % (auto) (0.0-0.2) /100WBC Neutrophils % (Manual) (45-73) % Band Neutrophils % (3-5) % Lymphocytes % (Manual) (20-40) % Monocytes % (Manual) (2-11) % Metamyelocytes % % Abs Neuts (Manual) (2.0-8.3) X10*3/uL Lymphocytes # (Manual) (1.2-4.9) X10*3/uL Monocytes # (Manual) (0.1-1.2) X10*3/uL Metamyelocytes # X10*3/uL Platelet Estimate (NORMAL) Plt Morphology Comment RBC Morphology PT (10.0-13.1) SEC INR (0.9-1.1) APTT (26.0-36.4) SEC VBG pH 7.42 7.46 H (7.32-7.43) VBG pCO2 46 48 mmHg VBG pO2 71 82 mmHg VBG HCO3 30 H 34 H (22-26) mmol/L VBG O2 Saturation 93.0 98.0 % VBG Base Excess 5.1 9.8 mmol/L Sodium (135-145) mmol/L Potassium (3.3-5.1) mmol/L Chloride (96-108) mmol/L Carbon Dioxide (22-29) mmol/L Anion Gap (12-20) BUN (9-16) mg/dL Creatinine (0.5-1.4) mg/dL Estim Creat Clear Calc Estimated GFR POC Glucose (60-115) mg/dL Random Glucose (60-115) mg/dL Lactic Acid (0.5-2.0) mmol/L Calcium (8.4-10.2) mg/dL Magnesium (1.6-2.6) mg/dL Total Bilirubin (0.0-1.0) mg/dL AST (5-31) U/L ALT (0-31) U/L Alkaline Phosphatase (39-117) U/L Troponin I High Sens (<3.5-17.0) ng/L B-Natriuretic Peptide (<100) pg/mL Total Protein (6.5-8.0) g/dL Albumin (3.5-5.0) g/dL Urine Color Yellow Urine Appearance Cloudy Urine pH 6.0 (5.0-9.0) Ur Specific [place] 1.015 (1.005-1.025) Urine Protein Negative (Neg-Trace) mg/dL Urine Glucose (UA) Negative (Negative) mg/dL Urine Ketones Negative (Negative) mg/dL Urine Blood Small (1+) H (Negative) Urine Nitrite Negative (Negative) Ur Leukocyte Esterase Large (3+) H (Negative) Urine RBC 6-10 H (0-2) /HPF Urine WBC >50 H (0-5) /HPF Ur Squamous Epith Cells >20 (0-2) /HPF Urine Bacteria None Seen (None Seen) Hyaline Casts 3-5 (0-2) /LPF COVID-19 (HORACIO) (Negative) COVID-19 Clin Com Influenza Type A (DULCE) (Negative) Influenza Type B (DULCE) (Negative) Influenza A & B Note Independent Interpretation I performed an independent interpretation of an: EKG Interpretation: Sinus tachycardia heart rate 106 beats per minute nonspecific ST T wave changes normal axis no acute ischemia Critical Care Time Critical Care Time Critical Care Time: Yes Total Critical Care Time: 100 Attestation: The patient was critically ill with a high probability of imminent or life threatening deterioration. I spent greater [id number] minutes of discontinuous time evaluating the patient,delivering critical care at the bedside, discussing and evaluating pertinent data with consultants. Critical care time does not include time spent performing separately billable procedures or teaching. Total time spent performing critical care was 100 minutes. Discharge Plan Discharge Clinical Impression: Multifocal pneumonia, Acute hypoxemic respiratory failure, Unresponsive episode Patient Disposition: Admitted As Inpatient
[2022-09-04 07:08] LABS: Glucose, Whole Blood 192 mg/dL (60-115)
[2022-09-04] MEDS: Furosemide 20 MG/2 ML VIAL IVPUSH ×2 (07:36→08:20)
[2022-09-04 08:04] LABS: Hematocrit 38.2 % (37.0-47.0); Hemoglobin 11.9 g/dl (12.0-16.0); Mean Corpuscular HGB Conc 31.2 g/dl (31.0-35.0); Mean Corpuscular Hemoglobin 25.5 pg (27.0-33.0); Mean Platelet Volume 11.3 fL (9.4-12.3); Platelet Count 198 X10*3/uL (160-400); Red Blood Count 4.66 X10*6/uL (4.20-5.50); White Blood Count 6.7 X10*3/uL (4.8-10.8)
[2022-09-04 08:09] LABS: INTERNATIONAL NORM RATIO 1.1 (0.9-1.1); Prothrombin Time 12.1 SEC (10.0-13.1)
[2022-09-04] MEDS: cefTRIAXone sodium 1 GM in 0.9 % Sodium Chloride 50 ML IV (08:09)
[2022-09-04 08:12] LABS: Partial Thromboplastin Time 27.3 SEC (26.0-36.4)
[2022-09-04 08:15] LABS: Lactic Acid 1.5 mmol/L (0.5-2.0)
[2022-09-04 08:20] LABS: Alanine Aminotransferase 8 U/L (0-31); Albumin Level 3.7 g/dL (3.5-5.0); Alkaline Phosphatase 85 U/L (39-117); Anion Gap 13 (12-20); Aspartate Amino Transferase 14 U/L (5-31); Bilirubin Total 0.6 mg/dL (0.0-1.0); Blood Urea Nitrogen 30 mg/dL (9-16); Calcium 10.3 mg/dL (8.4-10.2); Carbon Dioxide 27 mmol/L (22-29); Chloride 107 mmol/L (96-108); Creatinine Clr Calc Pharmacy 32.3; Estimated Glomerular Filt Rate 54; Glucose Random 200 mg/dL (60-115); Magnesium 1.8 mg/dL (1.6-2.6); Potassium 3.9 mmol/L (3.3-5.1); Sodium 143 mmol/L (135-145)
[2022-09-04 08:26] LABS: Troponin-I High Sensitivity 3.6 ng/L (<3.5-17.0)
[2022-09-04 08:34] LABS: Neutrophils Percent Manual 32 % (45-73)
[2022-09-04 08:36] LABS: Band Neutrophils Percent 52 % (3-5); Lymphocytes Absolute Manual 0.3 X10*3/uL (1.2-4.9); Lymphocytes Percent Manual 4 % (20-40); Metamyelocytes Absolute 0.3 X10*3/uL; Metamyelocytes Percent 4 %; Monocytes Absolute Manual 0.5 X10*3/uL (0.1-1.2); Monocytes Percent Manual 8 % (2-11); Neutrophils Absolute Manual 5.6 X10*3/uL (2.0-8.3)
[2022-09-04 08:37] LABS: Platelet Estimate NORMAL (NORMAL); Platelet Morphology Comment NORMAL; RBC Morphology NORMAL
[2022-09-04 08:39] LABS: IDNOW Serial# 16C4AD1C; Influenza A Negative (Negative)
[2022-09-04 08:40] LABS: COVID-19 Test Negative (Negative); Influenza B2 Negative (Negative)
--- NOTE | 2022-09-04 08:43 | PC.NURSE ---
Dr Rossana Kovacs on phone with healthcare proxy to make the patient DNR/DNI with this RN present for phone call. Per facility, pt also has stage 2 lung ca ?bilateral lung
--- NOTE | 2022-09-04 08:47 | PC.NURSE ---
Late entry pt bagged upon arrival, multiple attempts at iv d/t difficult stick. provider obtained ultrasound guided iv 20 to left ac. pt changed into hospital [facility] - brief saturated with urine and pt was incontinent of urine during time of change. pt's pajama top was cut - staff aware. temp sensing dior inserted with minimal output. pt on cpap machine now at 50% o2. pt alert to sternal rub and loud verbal stimuli, able to briefly open her eyes to the stimuli
--- NOTE | 2022-09-04 08:51 | PC.NURSE ---
Antibiotics infused, staff remains at the bedside.
[2022-09-04 09:15] LABS: B Type Natriuretic Peptide 107 pg/mL (<100)
[2022-09-04] MEDS: iohexoL 350 MG/ML 100 ML INFUS..BTL 65 ML IV (09:28)
[2022-09-04 09:45] LABS: Venous Blood Gas Refer to POC result
[2022-09-04 09:45] LABS: VBG Base Excess 5.1 mmol/L; VBG HCO3 30 mmol/L (22-26); VBG pCO2 46 mmHg; VBG pH 7.42 (7.32-7.43); VBG pO2 71 mmHg
[2022-09-04] MEDS: 0.9 % Sodium Chloride 1,000 ML 999 ML IV (09:48)
[2022-09-04 10:01] LABS: Appearance Urine Cloudy; Color Urine Yellow; Glucose Urine UA Negative (Negative); Leukocyte Esterase Urine Large (3+) (Negative); Nitrite Urine Negative (Negative); Specific Gravity - Urine 1.015 (1.005-1.025); UMIC TRIGGER UACC YES; Urine Blood Small (1+) (Negative); Urine Ketones Negative (Negative); Urine Protein Negative (Neg-Trace)
[2022-09-04 10:15] LABS: Bacteria Urine None Seen (None Seen); Squamous Epithelial Cell Urine >20 /HPF (0-2); UACC Culture Trigger YES; WBC Urine >50 /HPF (0-5)
[2022-09-04] MEDS: Piperacillin Sodium/Tazobactam 3.375 GM in 0.9 % Sodium Chloride 50 ML IV (10:27)
--- NOTE | 2022-09-04 11:05 | PHA.MEDREC ---
Pharmacy Consult ? Medication Reconciliation Pharmacy has completed the medication reconciliation. Patient came with medication list from [facility] with documented dose given. Evelyn Galloway, FidencioD
--- NOTE | 2022-09-04 12:54 | PC.NURSE ---
Antibiotics and fluids infused. Rodriguez in place with approx 1300ml output. Pt taken off cpap, 3L nasal cannula 97%.
--- NOTE | 2022-09-04 14:15 | PM.IMHP ---
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 Per [facility] staff patient has had difficulty breathing with GCS7 on arrival (arousable only to painful stimuli). Per EMS was 71% on RA and placed on NRB without improvement and switched to BVM for mechanical ventilation. She did also have short run of NSVT on monitor per EMS. According to detention staff patient had recent fever. On my exam, patient is somnolent and arousable only to sternal rub and loud voice btu quickly falls back to sleep. History obtained from ED staff. On arrival, patient placed on CPAP. She was febrile to 100.4, tachycardic to 105, tachypneic to 38. She did briefly desaturate to 85% on CPAP, but has since been weaned to 3L NS maintaining oximetry 90-95%. ED provider did have conversation with pt HCP and patient has been made DNR/DNI. There is no leukocytosis but bandemia 52%. Initial VBG with pH 7.42, pCO2 46, pO2 71, HCO3 30. Renal function and elctrolytes normal. Glucose 200. BNP 107, trop 3.6. UA with 3+ leuks, negative nitrites, 1+ blood, +urinary sediment, negative bacteria. Dior catheter was inserted for fluid management. Negative for COVID 19 and influenza. CXR shows airspace opacities in the right mid and lower lung and retrocardiac region suspicious for infiltrates. Subsequent CTA chest was negative for PE without evidence of aortic aneurysm or dissection btu showed RLL and BLL dependent basilar infiltrates as well as abnormal reactive bilateral hilar and mediastinal lymph nodes. In the ED was diuresed with 40mg IV lasix and given 1L IV NS, 1g IV rocephin, 3.375g zosyn. Review of Systems Review of Systems: Yes Unobtainable due to mental condition and Unobtainable due to mental status PMFSH Medical History Alzheimer's dementia Asthma CAD (coronary artery disease) Cardiomyopathy CHF (congestive heart failure) Dementia Depression with anxiety Diabetes DJD (degenerative joint disease) Dysphagia Foot drop GERD (gastroesophageal reflux disease) Hiatal hernia History of iron deficiency anemia History of stomach ulcers Hyperlipidemia Hypertension Lab test positive for detection of COVID-19 virus Surgical History No pertinent past surgical history Social History Household Members: Unknown / Unable to assess Housing: Unknown / Unable to assess Unable to assess alcohol history related to: Unknown Alcohol intake: unknown Patient Tobacco Use Status: Tobacco use Unknown Advance Directives: Yes Advance Directives on File: Yes Advance Directives Date on File: 01/29/22 service: No Current occupational status: disabled Meds Allergies Allergy/AdvReac Type Severity Reaction Status Date / Time TJ Inhibitors Allergy Severe Angioedema Verified 01/31/22 02:02 Home Medications Medication Instructions Recorded Confirmed Last Taken Type alendronate 70 mg tablet 1 tab PO BURRIS 01/29/22 09/04/22 08/28/22 History amlodipine 5 mg tablet 1 tab PO DAILY 01/29/22 09/04/22 09/03/22 History aspirin 81 mg tablet,delayed 81 mg PO DAILY 01/29/22 09/04/22 09/03/22 History release atorvastatin 20 mg tablet 1 tab PO BEDTIME 01/29/22 09/04/22 09/03/22 History carvedilol 12.5 mg tablet 12.5 mg PO BID 01/29/22 09/04/22 09/03/22 History loratadine 10 mg tablet (Claritin) 10 mg PO DAILY 01/29/22 09/04/22 09/03/22 History magnesium oxide 400 mg PO BID 01/29/22 09/04/22 09/03/22 History metformin 500 mg tablet,extended 500 mg PO BID@0800,1700 01/29/22 09/04/22 09/03/22 History release 24 hr methenamine hippurate 1 gram tablet 1 g PO BID@0800,1700 01/29/22 09/04/22 09/03/22 History omeprazole 20 mg capsule,delayed 20 mg PO DAILY 01/29/22 09/04/22 09/03/22 History release paroxetine HCl 30 mg tablet 1 tab PO DAILY 01/29/22 09/04/22 09/03/22 History ascorbic acid (vitamin C) 500 mg 500 mg PO DAILY 03/10/22 09/04/22 09/03/22 History tablet calcium carbonate 600 mg-vitamin 1 tab PO DAILY 03/10/22 09/04/22 09/03/22 History D3 5 mcg (200 unit) tablet acetaminophen 325 mg tablet 650 mg PO Q6H PRN Pain 09/04/22 09/04/22 Unknown History polyethylene glycol 3350 17 gram 17 g PO DAILY PRN Constipation 09/04/22 09/04/22 Unknown History oral powder packet risperidone 0.5 mg tablet 0.5 mg PO DAILY@1600 09/04/22 09/04/22 09/03/22 History Physical Exam Vital Signs and Narrative: Vital Signs: Last Vital Signs Temp 99 F 09/04/22 13:34 Pulse 97 09/04/22 13:34 Resp 24 H 09/04/22 13:34 BP 133/57 L 09/04/22 13:34 Pulse Ox 90 L 09/04/22 13:34 O2 Del Method Nasal Cannula 09/04/22 13:34 O2 Flow Rate 3 09/04/22 13:34 BMI result Body Mass Index 20.8 Constitutional - Somnolent arousable to pain and loud voice, no distress. Eyes - PERRLA, EOMI Cardiovascular - S1S2, RRR, No edema Respiratory - Normal lung expansion, Normal respiratory effort, No respiratory distress on 3L O2, diminished lung sounds bilaterally Gastrointestinal - NT / ND; +BS; No rebound or guarding Extremities - no calf tenderness bilaterally, no swelling Skin - Warm/Dry Neurological - Somnolent arousable to pain and loud voice, GCS 8, unable to participate in neuro exam but does recoil to pain in all extremities Results Labs 09/04/22 07:53 09/04/22 07:53 Labs: Laboratory Results - last 24 hr 09/04/22 09/04/22 09/04/22 06:54 07:53 07:53 MCV 82.0 MCH 25.5 L MCHC 31.2 RDW 18.0 H Plt Count 198 MPV 11.3 Immature Gran % (Auto) Cancelled Neut % (Auto) Cancelled Lymph % (Auto) Cancelled [place] % (Auto) Cancelled Eos % (Auto) Cancelled Baso % (Auto) Cancelled Lymph # (Auto) Cancelled [place] # (Auto) Cancelled Eos # (Auto) Cancelled Baso # (Auto) Cancelled Abs Immat Gran (auto) Cancelled Absolute Neuts (auto) Cancelled Absolute Nucleated RBC 0.000 Nucleated RBC % (auto) 0.0 Neutrophils % (Manual) 32 L Band Neutrophils % 52 H Lymphocytes % (Manual) 4 L Monocytes % (Manual) 8 Metamyelocytes % 4 Abs Neuts (Manual) 5.6 Lymphocytes # (Manual) 0.3 L Monocytes # (Manual) 0.5 Metamyelocytes # 0.3 Platelet Estimate NORMAL Plt Morphology Comment NORMAL RBC Morphology NORMAL PT INR APTT VBG pH VBG pCO2 VBG pO2 VBG HCO3 VBG O2 Saturation VBG Base Excess Anion Gap 13 Estim Creat Clear Calc 32.3 Estimated GFR 54 POC Glucose 192 H Random Glucose 200 H Lactic Acid Calcium 10.3 H Magnesium 1.8 Total Bilirubin 0.6 AST 14 ALT 8 Alkaline Phosphatase 85 Troponin I High Sens B-Natriuretic Peptide Total Protein 7.0 Albumin 3.7 Urine Color Urine Appearance Urine pH Ur Specific Muse Urine Protein Urine Glucose (UA) Urine Ketones Urine Blood Urine Nitrite Ur Leukocyte Esterase Urine RBC Urine WBC Ur Squamous Epith Cells Urine Bacteria Hyaline Casts COVID-19 (HORACIO) COVID-19 Clin Com Influenza Type A (DULCE) Influenza Type B (DULCE) Influenza A & B Note 09/04/22 09/04/22 09/04/22 07:53 07:53 07:53 MCV MCH MCHC RDW Plt Count MPV Immature Gran % (Auto) Neut % (Auto) Lymph % (Auto) [place] % (Auto) Eos % (Auto) Baso % (Auto) Lymph # (Auto) [place] # (Auto) Eos # (Auto) Baso # (Auto) Abs Immat Gran (auto) Absolute Neuts (auto) Absolute Nucleated RBC Nucleated RBC % (auto) Neutrophils % (Manual) Band Neutrophils % Lymphocytes % (Manual) Monocytes % (Manual) Metamyelocytes % Abs Neuts (Manual) Lymphocytes # (Manual) Monocytes # (Manual) Metamyelocytes # Platelet Estimate Plt Morphology Comment RBC Morphology PT 12.1 INR 1.1 APTT 27.3 VBG pH VBG pCO2 VBG pO2 VBG HCO3 VBG O2 Saturation VBG Base Excess Anion Gap Estim Creat Clear Calc Estimated GFR POC Glucose Random Glucose Lactic Acid 1.5 Calcium Magnesium Total Bilirubin AST ALT Alkaline Phosphatase Troponin I High Sens 3.6 B-Natriuretic Peptide Total Protein Albumin Urine Color Urine Appearance Urine pH Ur Specific Muse Urine Protein Urine Glucose (UA) Urine Ketones Urine Blood Urine Nitrite Ur Leukocyte Esterase Urine RBC Urine WBC Ur Squamous Epith Cells Urine Bacteria Hyaline Casts COVID-19 (HORACIO) COVID-19 Clin Com Influenza Type A (DULCE) Influenza Type B (DULCE) Influenza A & B Note 09/04/22 09/04/22 09/04/22 07:53 08:15 08:15 MCV MCH MCHC RDW Plt Count MPV Immature Gran % (Auto) Neut % (Auto) Lymph % (Auto) [place] % (Auto) Eos % (Auto) Baso % (Auto) Lymph # (Auto) [place] # (Auto) Eos # (Auto) Baso # (Auto) Abs Immat Gran (auto) Absolute Neuts (auto) Absolute Nucleated RBC Nucleated RBC % (auto) Neutrophils % (Manual) Band Neutrophils % Lymphocytes % (Manual) Monocytes % (Manual) Metamyelocytes % Abs Neuts (Manual) Lymphocytes # (Manual) Monocytes # (Manual) Metamyelocytes # Platelet Estimate Plt Morphology Comment RBC Morphology PT INR APTT VBG pH VBG pCO2 VBG pO2 VBG HCO3 VBG O2 Saturation VBG Base Excess Anion Gap Estim Creat Clear Calc Estimated GFR POC Glucose Random Glucose Lactic Acid Calcium Magnesium Total Bilirubin AST ALT Alkaline Phosphatase Troponin I High Sens B-Natriuretic Peptide 107 H Total Protein Albumin Urine Color Urine Appearance Urine pH Ur Specific Muse Urine Protein Urine Glucose (UA) Urine Ketones Urine Blood Urine Nitrite Ur Leukocyte Esterase Urine RBC Urine WBC Ur Squamous Epith Cells Urine Bacteria Hyaline Casts COVID-19 (HORACIO) Negative COVID-19 Clin Com See Note Influenza Type A (DULCE) Negative Influenza Type B (DULCE) Negative Influenza A & B Note See Note 09/04/22 09/04/22 09:37 09:53 MCV MCH MCHC RDW Plt Count MPV Immature Gran % (Auto) Neut % (Auto) Lymph % (Auto) [place] % (Auto) Eos % (Auto) Baso % (Auto) Lymph # (Auto) [place] # (Auto) Eos # (Auto) Baso # (Auto) Abs Immat Gran (auto) Absolute Neuts (auto) Absolute Nucleated RBC Nucleated RBC % (auto) Neutrophils % (Manual) Band Neutrophils % Lymphocytes % (Manual) Monocytes % (Manual) Metamyelocytes % Abs Neuts (Manual) Lymphocytes # (Manual) Monocytes # (Manual) Metamyelocytes # Platelet Estimate Plt Morphology Comment RBC Morphology PT INR APTT VBG pH 7.42 VBG pCO2 46 VBG pO2 71 VBG HCO3 30 H VBG O2 Saturation 93.0 VBG Base Excess 5.1 Anion Gap Estim Creat Clear Calc Estimated GFR POC Glucose Random Glucose Lactic Acid Calcium Magnesium Total Bilirubin AST ALT Alkaline Phosphatase Troponin I High Sens B-Natriuretic Peptide Total Protein Albumin Urine Color Yellow Urine Appearance Cloudy Urine pH 6.0 Ur Specific Muse 1.015 Urine Protein Negative Urine Glucose (UA) Negative Urine Ketones Negative Urine Blood Small (1+) H Urine Nitrite Negative Ur Leukocyte Esterase Large (3+) H Urine RBC 6-10 H Urine WBC >50 H Ur Squamous Epith Cells >20 Urine Bacteria None Seen Hyaline Casts 3-5 COVID-19 (HORACIO) COVID-19 Clin Com Influenza Type A (DULCE) Influenza Type B (DULCE) Influenza A & B Note Imaging Radiologist's Impressions: Impressions Chest X-Ray 09/04/22 07:45 IMPRESSION: Airspace opacities in the right mid and lower lung, and in the retrocardiac region suspicious for infiltrates. Chest CTA 09/04/22 09:30 IMPRESSION: No evidence of PE. No evidence of aortic aneurysm or dissection. Right lower lobe lobe and bilateral lower lobe dependent basilar infiltrates. Abnormal reactive bilateral hilar and mediastinal lymph nodes. 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 #Acute hypoxemic respiratory failure- 2/2 multifocal pneumonia -Initially required mech vent with BVM, switched to CPAP, weaned to 3L via NC -VBG x2 reassuring -CTA chest negative for PE, showing multifocal pneumonia -Continue supplemental O2 to maintain oximetry >92% #Acute metabolic encepahloapthy -GCS 8 -2/2 to pneumonia -Keep NPO for now, gentle IVF -monitor mentation #Acute multifocal pneumonia with bandemia with sepsis- ?aspiration -IV cefepime 1g q8h (renally dosed) -symptomatic management -No leukocytosis, but bandemia 55%. Tachycardic to 105, febrile to 100.4, tachypneic. Lactic acid normal. No end organ damage. No hypotension -ONLINE SERVICES MANAGER eval #?recently diagnosed lung cancer -Per detention staff, no other information available from detention -No records from at [facility] or [facility]. Will request notes from Amanda/Carmela #Controlled noninsulin dependent type 2 diabetes -POC glucose -Advance to diabetic diet -Humalog on sliding scale #HTN- bp soft -hold antihypertensives in setting of sepsis #HLD/CAD/Cardiomyopathy, unspecified type -EKG nonischemic, trop WNL -Hold PO meds for now. Resume as tolerated #Urinary incontinence -Continue dior cath for fluid management -Hold PO meds for now. Resume as tolerated #GERD -Hold PO meds for now. Resume as tolerated #Alzheimers dementia/mood disorder -mentation as above, continue monitoring -Hold PO meds for now. Resume as tolerated DVT prophylaxis - lovenox DNR/DNI- per conversation between HCP and ED provider Pt requires inpt stay at least 2 midnights for management of acute hypoxemic respiratory failure and metabolic encephalopathy 2/2 aspiration pneumonia Time Spent With Patient Time: Total time managing care of this patient today ____ minutes. Quality Stroke Does the patient have a stroke diagnosis?: No VTE Prior VTE?: No VTE Risk Level:: Medical - moderate - high VTE Device Contraindication: Treatment Not Indicated VTE Drug Contraindication: N/A - Med Ordered
[2022-09-04 14:53] LABS: VBG Base Excess 9.8 mmol/L; VBG HCO3 34 mmol/L (22-26); VBG pCO2 48 mmHg; VBG pH 7.46 (7.32-7.43); VBG pO2 82 mmHg
[2022-09-04 14:59] LABS: Venous Blood Gas Refer to POC result
[2022-09-04] MEDS: 0.9 % Sodium Chloride 1,000 ML 75 ML IVCONT (15:14)
[2022-09-04] MEDS: Enoxaparin Sodium 40 MG/0.4 ML SYRINGE SUBCUT (15:19)
[2022-09-04] MEDS: cefEPime HCl 2 GM in 0.9 % Sodium Chloride 50 ML IV (15:20)
[2022-09-05 03:40] VITALS: BP 126/49; PULSE 113; RESP 20; TEMP 36.7; O2SAT 95
[2022-09-05] MEDS: 0.9 % Sodium Chloride 1,000 ML 75 ML IVCONT (04:34)
[2022-09-05] MEDS: cefEPime HCl 2 GM in 0.9 % Sodium Chloride 50 ML IV (04:36)
[2022-09-05 08:00] VITALS: BP 107/50; PULSE 86; RESP 16; TEMP 34.3; O2SAT 93
--- NOTE | 2022-09-05 08:50 | HO.PM.IMPN ---
Subjective Subjective Date of Service: 09/05/22 Interval History: sob, confused Physical Exam Vital Signs: Vital Signs: Last Vital Signs Temp 93.7 F L 09/05/22 08:00 Pulse 86 09/05/22 08:00 Resp 16 09/05/22 08:00 BP 107/50 L 09/05/22 08:00 Pulse Ox 93 09/05/22 08:00 O2 Del Method Nasal Cannula 09/05/22 08:00 O2 Flow Rate 3 09/05/22 08:00 BMI result Body Mass Index 22.4 crackles bilateral, alert confused, Objective Data Active Medications Acetaminophen (Acetaminophen 325 Mg Tablet) 650 mg PO Q6H PRN PRN Reason: Pain, Mild (Pain Scale 1-3) Docusate Sodium (Docusate Sodium 100 Mg Capsule) 100 mg PO DAILY PRN PRN Reason: Constipation Enoxaparin Sodium (Enoxaparin Sodium 40 Mg/0.4 Ml Syringe) 40 mg SUBCUT Q24H [facility] Last Admin: 09/04/22 15:19 Dose: 40 mg Documented By: BELINDA Guaifenesin (Guaifenesin 200 Mg/10 Ml 10 Ml Liquid) 10 ml PO Q4H PRN PRN Reason: Cough Cefepime HCl 2 gm/ Sodium (Chloride) 50 mls @ 100 mls/hr IV Q12H [facility] Last Infusion: 09/05/22 05:38 Dose: 0 mls/hr Documented By: DAIANA Sodium Chloride (Ns) 1,000 mls @ 75 mls/hr IVCONT .[id number] [facility] Last Admin: 09/05/22 04:34 Dose: 75 mls/hr Documented By: DAIANA Ondansetron HCl (Ondansetron Hcl 4 Mg/2 Ml Vial) 4 mg IVPUSH Q8H PRN PRN Reason: Nausea and Vomiting Sodium Chloride (0.9 % Sodium Chloride Flush 3 Ml Syringe) 3 ml IVFLUSH QSHIFT [facility] Last Admin: 09/05/22 02:19 Dose: Not Given Documented By: DAIANA Non-Admin Reason: IV Running Labs 09/04/22 07:53 09/04/22 07:53 Labs: Laboratory Results - last 24 hr 09/04/22 09/04/22 09/04/22 07:53 09:37 09:53 VBG pH 7.42 VBG pCO2 46 VBG pO2 71 VBG HCO3 30 H VBG O2 Saturation 93.0 VBG Base Excess 5.1 B-Natriuretic Peptide 107 H Urine Color Yellow Urine Appearance Cloudy Urine pH 6.0 Ur Specific [place] 1.015 Urine Protein Negative Urine Glucose (UA) Negative Urine Ketones Negative Urine Blood Small (1+) H Urine Nitrite Negative Ur Leukocyte Esterase Large (3+) H Urine RBC 6-10 H Urine WBC >50 H Ur Squamous Epith Cells >20 Urine Bacteria None Seen Hyaline Casts 3-5 09/04/22 14:46 VBG pH 7.46 H VBG pCO2 48 VBG pO2 82 VBG HCO3 34 H VBG O2 Saturation 98.0 VBG Base Excess 9.8 B-Natriuretic Peptide Urine Color Urine Appearance Urine pH Ur Specific [place] Urine Protein Urine Glucose (UA) Urine Ketones Urine Blood Urine Nitrite Ur Leukocyte Esterase Urine RBC Urine WBC Ur Squamous Epith Cells Urine Bacteria Hyaline Casts Assessment and Plan (1) Acute hypoxemic respiratory failure: Status: Acute Plan 82F PMH alzheimers dementia,DM2, urinary incontinence, osteoporosis, vitamin b12 deficiency, htn, hld, gerd, djd, cad, unspecified heart failure, mood disorder, presented with sob sepsis, acute metabolic encephalopathy, and Acute hypoxemic respiratory failure- 2/2 multifocal pneumonia concern for aspiration STICKER HAND, iv zosyn follow up cultures wean o2 as tolerated ?recently diagnosed lung cancer outpatient follow up DM insulin, pocs HTN- bp soft hold antihypertensives in setting of sepsis CAD/Cardiomyopathy, unspecified type monitor for fluid overload Alzheimers dementia/mood disorder monitor for delerium DVT prophylaxis - lovenox DNR/DNI reason for continued hospitalization:hypoxia Time Spent With Patient Time: Total time managing care of this patient today ____ minutes. Quality Stroke Does the patient have a stroke diagnosis?: No VTE Prior VTE?: No VTE Risk Level:: Medical - moderate - high VTE Device Contraindication: Treatment Not Indicated VTE Drug Contraindication: N/A - Med Ordered
--- NOTE | 2022-09-05 09:42 | PC.NURSE ---
dior removed at 0942 per MD order. external catheter placed on patient. Will continue to monitor urine output
[2022-09-05] MEDS: 0.9 % Sodium Chloride Flush 3 ML SYRINGE IVFLUSH ×2 (09:45→16:50)
[2022-09-05] MEDS: Piperacillin Sodium/Tazobactam 3.375 GM in 0.9 % Sodium Chloride 50 ML IV ×3 (09:46→21:54)
[2022-09-05] MEDS: Dextrose 5 % and 0.45 % NaCl 1,000 ML 80 ML IVCONT ×2 (10:48→22:33)
--- NOTE | 2022-09-05 11:57 | MHC.SL.SWA ---
Speech Pathologist Impression: Severe oropharyngeal dysphagia Risk of Aspiration Due to: History of Pneumonia Reduced Cognition Weak Cough Weak Voice Dysphasia Diet Status: No change Liquid Consistency and Strategies for Safe Swallow: Liquid Intake Recommendation: NPO Solid Food Consistency: Dietary Recommendations: NPO Oral Medication Intake: NPO Please contact the pharmacy regarding appropriate crushable or liquid drug formulations that are available whenever modified delivery is recommended. Recommendation for Speech: Further Testing Needed Inpatient Speech Therapy Comment: Recommend pt continue NPO. RN, MD, RD notified via [facility]. BIOMEDICAL ENGINEERING PROFESSOR to re-assess tomorrow. NPO written on pt's white board. Pt's baseline diet unknown at this time; unable to connect w/ [facility]. Frequency/Duration: M-F during hospitalization Refresh Technician Clinican/Clinical Fellow: No Supervisory Statement: I have reviewed and agree with the student/clinical fellow's documentation: No Speech Language Pathologist: Sussy Del Castillo M.A., BIOMEDICAL ENGINEERING PROFESSOR
[2022-09-05 12:00] VITALS: BP 114/58; PULSE 78; RESP 15; TEMP 36; O2SAT 96
--- NOTE | 2022-09-05 14:03 | PC.NURSE ---
pt voided 50mLs with external cath at 1400. Rodriguez was removed at 0949. MD aware. Will continue to monitor urinary output.
--- NOTE | 2022-09-05 15:38 | MHC.CM.PN ---
IMM 09/05/22 DELIVERED TO HCP TIFFANY MARTI AT [phone] AND WILL BE SENT VIA CERTIFIED MAIL. PT W/ALZHEIMERS DEMENTIA AND MULTIFACTORAL PNA, TIFFANY CONFIRMS PT LIVES IN [facility], IS FULLY DEPENDENT W/CARE, WILL NEED BLS TRANSPORT, PCP IS MIESHA PERALTA, ISMAEL VACC X3 AND HCP IS TIFFANY AND COPY ON FILE FROM PREVIOUS ADMIT. D/C PLAN: RETURN TO [facility] FOR BLS TRANSPORT PLEASE CONTACT [employer] [place] [phone] TO ARRANGE PT'S RETURN, [facility] NURSE YONI [phone]
[2022-09-05 16:00] VITALS: BP 113/53; PULSE 79; RESP 17; TEMP 36.9; O2SAT 97
[2022-09-05] MEDS: Enoxaparin Sodium 40 MG/0.4 ML SYRINGE SUBCUT (16:50)
[2022-09-05 19:37] VITALS: BP 105/51; PULSE 71; RESP 18; TEMP 36.8; O2SAT 91
[2022-09-06] VITALS (7 sets, daily range): BP systolic 115–125; BP diastolic 51–66; PULSE 72–96; RESP 16–20; TEMP 36–37.7; O2SAT 92–98
--- NOTE | 2022-09-06 02:41 | PC.NURSE ---
Pt having continous pauses 3.5sec 3.3 sec 3.8 sec 2.9 sec 3.4 sec pt sleeping. notified.
[2022-09-06] MEDS: Piperacillin Sodium/Tazobactam 3.375 GM in 0.9 % Sodium Chloride 50 ML IV ×4 (03:59→23:01)
[2022-09-06 07:20] LABS: Hematocrit 30.5 % (37.0-47.0); Hemoglobin 9.7 g/dl (12.0-16.0); Mean Corpuscular HGB Conc 31.8 g/dl (31.0-35.0); Mean Corpuscular Hemoglobin 25.8 pg (27.0-33.0); Mean Corpuscular Volume 81.1 fL (80.0-98.0); Mean Platelet Volume 11.3 fL (9.4-12.3); Platelet Count 181 X10*3/uL (160-400); Red Blood Count 3.76 X10*6/uL (4.20-5.50); Red Cell Distribution Width 17.3 % (11.0-16.0); White Blood Count 8.4 X10*3/uL (4.8-10.8)
[2022-09-06 07:35] LABS: Blood Urea Nitrogen 10 mg/dL (9-16); Creatinine Clr Calc Pharmacy 44.6; Estimated Glomerular Filt Rate > 60; Glucose Fasting 164 mg/dL (60-99)
[2022-09-06 07:43] LABS: Anion Gap 10 (12-20); Calcium 8.2 mg/dL (8.4-10.2); Carbon Dioxide 29 mmol/L (22-29); Chloride 104 mmol/L (96-108); Potassium 2.9 mmol/L (3.3-5.1); Sodium 140 mmol/L (135-145)
[2022-09-06] MEDS: Potassium Chloride/H20 10 MEQ/100 ML PIGGYBACK 100 MEQ IV ×2 (09:01→10:26)
[2022-09-06] MEDS: 0.9 % Sodium Chloride Flush 3 ML SYRINGE IVFLUSH ×2 (09:01→17:07)
--- NOTE | 2022-09-06 09:47 | P.PNIM_ITS ---
Subjective Subjective Date of Service: 09/06/22 Interval History: hungry Physical Exam Vital Signs: Vital Signs: Last Vital Signs Temp 96.8 F 09/06/22 07:30 Pulse 72 09/06/22 07:30 Resp 20 09/06/22 07:30 BP 125/58 L 09/06/22 07:30 Pulse Ox 97 09/06/22 07:30 O2 Del Method Nasal Cannula 09/06/22 07:30 O2 Flow Rate 3 09/06/22 03:39 BMI result Body Mass Index 22.4 crackles bilateral, alert confused, Objective Data Active Medications Acetaminophen (Acetaminophen 325 Mg Tablet) 650 mg PO Q6H PRN PRN Reason: Pain, Mild (Pain Scale 1-3) Docusate Sodium (Docusate Sodium 100 Mg Capsule) 100 mg PO DAILY PRN PRN Reason: Constipation Enoxaparin Sodium (Enoxaparin Sodium 40 Mg/0.4 Ml Syringe) 40 mg SUBCUT Q24H [facility] Last Admin: 09/05/22 16:50 Dose: 40 mg Documented By: NISH Guaifenesin (Guaifenesin 200 Mg/10 Ml 10 Ml Liquid) 10 ml PO Q4H PRN PRN Reason: Cough Dextrose/Sodium Chloride (D51/2ns) 1,000 mls @ 80 mls/hr IVCONT .[id number] [facility] Last Admin: 09/05/22 22:33 Dose: 80 mls/hr Documented By: YOSEF Piperacillin Sod/Tazobactam (Sod 3.375 gm/ Sodium Chloride) 50 mls @ 100 mls/hr IV Q6H [facility] Last Infusion: 09/06/22 04:35 Dose: 0 mls/hr Documented By: YOSEF Potassium Chloride (Potassium Chloride/H20) 10 meq in 100 mls @ 100 mls/hr IV Q1H [facility] Stop: 09/06/22 11:59 Last Admin: 09/06/22 09:01 Dose: 100 mls/hr Documented By: BARI Ondansetron HCl (Ondansetron Hcl 4 Mg/2 Ml Vial) 4 mg IVPUSH Q8H PRN PRN Reason: Nausea and Vomiting Sodium Chloride (0.9 % Sodium Chloride Flush 3 Ml Syringe) 3 ml IVFLUSH QSHIFT [facility] Last Admin: 09/06/22 09:01 Dose: 3 ml Documented By: BARI Labs 09/06/22 06:48 09/06/22 06:48 Labs: Laboratory Results - last 24 hr 09/06/22 09/06/22 06:48 06:48 MCV 81.1 MCH 25.8 L MCHC 31.8 RDW 17.3 H Plt Count 181 MPV 11.3 Absolute Nucleated RBC 0.000 Nucleated RBC % (auto) 0.0 Anion Gap 10 L Estim Creat Clear Calc 44.6 Estimated GFR > 60 Fasting Glucose 164 H Calcium 8.2 L D Microbiology Microbiology Results: Microbiology 09/04/22 Unknown Urine Culture - Preliminary Urine Catheterized - Rodriguez Catheter 09/04/22 07:53 Blood Culture - Preliminary Blood - Venous No growth after 24 hours. 09/04/22 07:53 Blood Culture - Preliminary Blood - Venous No growth after 24 hours. Assessment and Plan (1) Acute hypoxemic respiratory failure: Status: Acute Plan 82F PMH alzheimers dementia,DM2, urinary incontinence, osteoporosis, vitamin b12 deficiency, htn, hld, gerd, djd, cad, unspecified heart failure, mood disorder, presented with sob sepsis, acute metabolic encephalopathy, and Acute hypoxemic respiratory failure- 2/2 multifocal pneumonia concern for aspiration ETCHER ENAMELING following, npo for now, iv zosyn, maintence fluids with d51/2ns follow up cultures - so far negative wean o2 as tolerated hypokalemia replace, monitor ?recently diagnosed lung cancer outpatient follow up DM insulin, pocs HTN- bp soft hold antihypertensives in setting of sepsis CAD/Cardiomyopathy, unspecified type monitor for fluid overload Alzheimers dementia/mood disorder monitor for delerium DVT prophylaxis - lovenox DNR/DNI reason for continued hospitalization:hypoxia Time Spent With Patient Time: Total time managing care of this patient today ____ minutes. Quality Stroke Does the patient have a stroke diagnosis?: No VTE Prior VTE?: No VTE Risk Level:: Medical - moderate - high VTE Device Contraindication: Treatment Not Indicated VTE Drug Contraindication: N/A - Med Ordered
[2022-09-06] MEDS: Dextrose 5 % and 0.45 % NaCl 1,000 ML 80 ML IVCONT (11:20)
--- NOTE | 2022-09-06 11:51 | MHC.SL.SWA ---
Speech Pathologist Impression: Risk of aspiration, oropharyngeal dysphagia Risk of Aspiration Due to: History of Pneumonia Reduced Cognition Dysphasia Diet Status: Pt seen for swallow re-evaluation this morning. Pt is edentulous, with disorganized oral phase characterized by repetitive tongue pumping, slowed and prolonged oral manipulation, and moderately delayed swallow trigger. Pt displayed overt s/s of aspiration with intake of thin liquid. Recommend START on PUREED (NDD1) diet with HONEY THICK liquids (TE[place]POON ONLY; NO STRAW) and CRUSHED pills in PUREE. Pt requires total 1:1 assistance feeding and close monitoring. Given aspiration risk, recommend oral care daily (before first meal and after each subsequent meal) and the following precautions: present one small bite at a time, liquids by teaspoon only, allow pt time to swallow, watch for laryngeal elevation before presenting next bite, ensure oral cavity is cleared. Hold tray if pt is lethargic or not attending to meal. REVENUE INTEGRITY ANALYST will continue to follow. Liquid Consistency and Strategies for Safe Swallow: Liquid Intake Recommendation: Honey Thick Liquid Intake Strategies: Small Sips No Straws Liquids by Teaspoon Only Solid Food Consistency: Dietary Recommendations: Pureed (NDD1) Oral Medication Intake: Crushed with Puree Please contact the pharmacy regarding appropriate crushable or liquid drug formulations that are available whenever modified delivery is recommended. Compensatory Strategies and Precautions to be Taken for Safe Swallow: Sitting Upright (90 deg) No Straw Liquids from Spoon Small Bites and Sips Rate of Ingestion Change Oral Check Avoid Specific Foods Supervision While Eating and Drinking for Safe Swallow: Total Assistance (1:1) Foods to Avoid: Mixed consistencies (i.e. liquid from puree); thin soups (needs to be thickened to homogenous honey thick consistency) Swallowing Recommended Treatments: Compens. Strategy Educat. Recommendation for Speech: Inpatient Speech Therapy Picked Edge Sewing Machine Operator Clinican/Clinical Fellow: No Supervisory Statement: I have reviewed and agree with the student/clinical fellow's documentation: No Speech Language Pathologist: Marisol Ace M.A., CCC-REVENUE INTEGRITY ANALYST
[2022-09-06] MEDS: Potassium Chloride/H20 10 MEQ/100 ML PIGGYBACK 50 MEQ IV ×2 (12:54→14:50)
[2022-09-06] MEDS: Enoxaparin Sodium 40 MG/0.4 ML SYRINGE SUBCUT (17:07)
--- NOTE | 2022-09-06 17:45 | PC.NURSE ---
Assumed care at 0700- Pt needing KCL replacement in which needed to be infused slowly due to irritation. IVF stopped to give KCL and abx. Resumed after infusions finished. Pt also started on diet, encouraging po intake.
[2022-09-07 03:19] VITALS: BP 131/61; PULSE 80; RESP 20; TEMP 36.1; O2SAT 100
[2022-09-07] MEDS: Piperacillin Sodium/Tazobactam 3.375 GM in 0.9 % Sodium Chloride 50 ML IV ×4 (04:42→21:57)
[2022-09-07 07:22] LABS: Hematocrit 33.6 % (37.0-47.0); Hemoglobin 10.6 g/dl (12.0-16.0); Mean Corpuscular HGB Conc 31.5 g/dl (31.0-35.0); Mean Corpuscular Hemoglobin 25.3 pg (27.0-33.0); Mean Corpuscular Volume 80.2 fL (80.0-98.0); Platelet Count 216 X10*3/uL (160-400); Red Blood Count 4.19 X10*6/uL (4.20-5.50); Red Cell Distribution Width 16.7 % (11.0-16.0); White Blood Count 7.9 X10*3/uL (4.8-10.8)
[2022-09-07 07:33] VITALS: BP 112/59; PULSE 77; RESP 20; TEMP 36.2; O2SAT 98
[2022-09-07 07:36] LABS: Anion Gap 12 (12-20); Blood Urea Nitrogen 7 mg/dL (9-16); Calcium 8.9 mg/dL (8.4-10.2); Carbon Dioxide 29 mmol/L (22-29); Chloride 105 mmol/L (96-108); Creatinine Clr Calc Pharmacy 46.6; Estimated Glomerular Filt Rate > 60; Glucose Fasting 181 mg/dL (60-99); Magnesium 1.6 mg/dL (1.6-2.6); Potassium 3.1 mmol/L (3.3-5.1); Sodium 143 mmol/L (135-145)
--- NOTE | 2022-09-07 10:29 | P.PNIM_ITS ---
Subjective Subjective Date of Service: 09/07/22 Interval History: Feels tired and has low energy tolerating modified diet better still on O2 supplement No reported overnight events Review of Systems Review of Systems: Yes all other systems are reviewed and are negative Physical Exam Vital Signs: Vital Signs: Last Vital Signs Temp 97.2 F 09/07/22 07:33 Pulse 77 09/07/22 07:33 Resp 20 09/07/22 07:33 BP 112/59 L 09/07/22 07:33 Pulse Ox 98 09/07/22 07:33 O2 Del Method Nasal Cannula 09/07/22 07:33 O2 Flow Rate 3 09/07/22 07:33 BMI result Body Mass Index 22.4 Const: Other: Constitutional : Awake, interactive, not in distress Neck : Normal inspection, Supple Cardiovascular : RRR, no JVP, no lower extremity edema Respiratory : fair bilateral air entry, basal crackles, on O2 supplement Gastrointestinal: soft, lax, Normal bowel sounds, Non tender Skin : Warm, Dry Neurological : Alert & oriented to self, No focal deficit Objective Data Active Medications Acetaminophen (Acetaminophen 325 Mg Tablet) 650 mg PO Q6H PRN PRN Reason: Pain, Mild (Pain Scale 1-3) Docusate Sodium (Docusate Sodium 100 Mg Capsule) 100 mg PO DAILY PRN PRN Reason: Constipation Enoxaparin Sodium (Enoxaparin Sodium 40 Mg/0.4 Ml Syringe) 40 mg SUBCUT Q24H [facility] Last Admin: 09/06/22 17:07 Dose: 40 mg Documented By: BARI Guaifenesin (Guaifenesin 200 Mg/10 Ml 10 Ml Liquid) 10 ml PO Q4H PRN PRN Reason: Cough Dextrose/Sodium Chloride (D51/2ns) 1,000 mls @ 80 mls/hr IVCONT .[id number] [facility] Last Infusion: 09/07/22 08:30 Dose: 80 mls/hr Documented By: NAVDEEP Piperacillin Sod/Tazobactam (Sod 3.375 gm/ Sodium Chloride) 50 mls @ 100 mls/hr IV Q6H [facility] Last Admin: 09/07/22 09:40 Dose: 100 mls/hr Documented By: NAVDEEP Ondansetron HCl (Ondansetron Hcl 4 Mg/2 Ml Vial) 4 mg IVPUSH Q8H PRN PRN Reason: Nausea and Vomiting Sodium Chloride (0.9 % Sodium Chloride Flush 3 Ml Syringe) 3 ml IVFLUSH QSHIFT [facility] Last Admin: 09/07/22 08:30 Dose: Not Given Documented By: NAVDEEP Non-Admin Reason: IV Running Labs 09/07/22 06:37 09/07/22 06:37 Labs: Laboratory Results - last 24 hr 09/07/22 09/07/22 06:37 06:37 MCV 80.2 MCH 25.3 L MCHC 31.5 RDW 16.7 H Plt Count 216 MPV 12.0 Absolute Nucleated RBC 0.000 Nucleated RBC % (auto) 0.0 Anion Gap 12 Estim Creat Clear Calc 46.6 Estimated GFR > 60 Fasting Glucose 181 H Calcium 8.9 D Magnesium 1.6 Microbiology Microbiology Results: Microbiology 09/04/22 Unknown Urine Culture - Final Urine Catheterized - Rodriguez Catheter Pseudomonas aeruginosa 09/04/22 07:53 Blood Culture - Preliminary Blood - Venous No growth after 48 hours. 09/04/22 07:53 Blood Culture - Preliminary Blood - Venous No growth after 48 hours. Assessment and Plan (1) Acute hypoxemic respiratory failure: Status: Acute (2) Multifocal pneumonia: Status: Acute (3) Acute metabolic encephalopathy: Status: Acute (4) Hypokalemia: Status: Acute Plan 82F PMH alzheimers dementia,DM2, urinary incontinence, osteoporosis, vitamin b12 deficiency, htn, hld, gerd, djd, cad, unspecified heart failure, mood disorder, presented with sob sepsis, acute metabolic encephalopathy, and Acute hypoxemic respiratory failure 2/2 multifocal pneumonia likely 2/2 aspiration SHOWER ATTENDANT following, advance diet to NDD1 continue iv zosyn DC maintence fluids cultures negative wean o2 as tolerated UTI 2/2 Pseudomonas growing Pseudomonas in urine 50-100k, could be colony on Abx hypokalemia replace, monitor recently diagnosed lung cancer outpatient follow up DM insulin, pocs HTN- bp soft hold antihypertensives in setting of sepsis CAD/Cardiomyopathy, unspecified type monitor for fluid overload Alzheimers dementia/mood disorder monitor for delerium DVT prophylaxis - lovenox DNR/DNI reason for continued hospitalization:hypoxia, infection Time Spent With Patient Time: Total time managing care of this patient today ____ minutes. Quality Stroke Does the patient have a stroke diagnosis?: No VTE Prior VTE?: No VTE Risk Level:: Medical - moderate - high VTE Device Contraindication: Treatment Not Indicated VTE Drug Contraindication: N/A - Med Ordered
[2022-09-07] MEDS: Potassium Chloride Packet 20 MEQ PACKET PO (10:40)
[2022-09-07 11:41] VITALS: BP 137/63; PULSE 74; RESP 20; TEMP 36.3; O2SAT 100
--- NOTE | 2022-09-07 12:38 | MHC.CM.PN ---
EMR REVIEWED, PT REMAINS ON IV ABX AND SUPPLEMENTAL O2, NO PLAN FOR D/C AT THIS TIME, ANTIC PT WILL D/C BACK TO ONCE MEDICALLY CLEARED, CM WILL CONT TO FOLLOW D/C NEEDS.
[2022-09-07 14:58] VITALS: BP 112/75; PULSE 74; RESP 20; TEMP 36.6; O2SAT 98
--- NOTE | 2022-09-07 15:43 | MHC.SLORD ---
Speech Language Pathology Order Status: CASE HARDENER attempted to see patient to monitor for toleration of diet recomendation (NDD1 and thin liquids). Pt accepted oral moisturizer and refused PO trials w/ CASE HARDENER. Pt had two cups of thin liquid at bedside (potassium & water). Spoke w/ RN regarding thin liquids. Thin liquids adequately thickened by CASE HARDENER. Pt's diet recommendations written on board.
--- NOTE | 2022-09-07 15:46 | MHC.SLORD ---
Speech Language Pathology Order Status: REMELT SUGAR BOILER attempted to see patient to monitor for toleration of diet recomendation (NDD1 and thin liquids via teaspoon). Pt accepted oral moisturizer and refused PO trials w/ REMELT SUGAR BOILER. Pt had two cups of thin liquid at bedside (potassium & water) w/ straw in nectar thick cup. Spoke w/ RN regarding liquids. Thin liquids adequately thickened by REMELT SUGAR BOILER. Pt's diet recommendations written on board.
[2022-09-07] MEDS: Enoxaparin Sodium 40 MG/0.4 ML SYRINGE SUBCUT (16:15)
[2022-09-07] MEDS: 0.9 % Sodium Chloride Flush 3 ML SYRINGE IVFLUSH (16:19)
[2022-09-07 19:20] VITALS: BP 147/64; PULSE 80; RESP 20; TEMP 36.7; O2SAT 99
[2022-09-07 23:29] VITALS: BP 113/60; PULSE 85; RESP 18; TEMP 36.6; O2SAT 97
[2022-09-08] MEDS: 0.9 % Sodium Chloride Flush 3 ML SYRINGE IVFLUSH ×4 (01:03→20:34)
[2022-09-08 03:25] VITALS: BP 116/59; PULSE 84; RESP 18; TEMP 36.6; O2SAT 94
[2022-09-08] MEDS: Piperacillin Sodium/Tazobactam 3.375 GM in 0.9 % Sodium Chloride 50 ML IV ×4 (04:05→23:04)
[2022-09-08 07:39] VITALS: BP 102/57; PULSE 118; RESP 20; TEMP 37; O2SAT 95
--- NOTE | 2022-09-08 10:34 | MHC.CM.PN ---
EMR REVIEWED, PER HOSPITALIST WILL ATTEMPT TO WEAN PT OFF OF SUPPLEMENTAL O2 AND PT CURRENTLY AT 2L [place], ANGY CONTACTED PT'S WEBBING TACKER KENDALL AT 10:32AM [phone] WHO REPORTS STAFF WILL NEED TO BE TRAINED AND REQUESTED CM CONTACT NURSE YONI, ANGY ATTEMPTED TO CONTACT YONI AND CALL WENT STRAIT TO AT 10:35AM. CM LEFT MESSAGE W/REQUEST FOR CALL BACK TO DISCUSS CASE. KENDALL AWARE THAT PT SHOULD BE CLEARED FOR D/C BY TOMORROW. CM WILL CONT TO FOLLOW.
[2022-09-08 11:20] VITALS: BP 119/58; PULSE 120; RESP 20; TEMP 37; O2SAT 94
--- NOTE | 2022-09-08 12:21 | P.PNIM_ITS ---
Subjective Subjective Date of Service: 09/08/22 Interval History: More alert and interactive less anxious tolerating modified diet better still on O2 supplement No reported overnight events Review of Systems Review of Systems: Yes all other systems are reviewed and are negative Physical Exam Vital Signs: Vital Signs: Last Vital Signs Temp 98.6 F 09/08/22 11:20 Pulse 120 H 09/08/22 11:20 Resp 20 09/08/22 11:20 BP 119/58 L 09/08/22 11:20 Pulse Ox 94 09/08/22 11:20 O2 Del Method Nasal Cannula 09/08/22 11:20 O2 Flow Rate 1 09/08/22 11:20 BMI result Body Mass Index 22.4 Const: Other: Constitutional : Awake, interactive, not in distress Neck : Normal inspection, Supple Cardiovascular : RRR, no JVP, no lower extremity edema Respiratory : fair bilateral air entry, basal crackles, on O2 supplement Gastrointestinal: soft, lax, Normal bowel sounds, Non tender Skin : Warm, Dry Neurological : Alert & oriented to self, No focal deficit Objective Data Active Medications Acetaminophen (Acetaminophen 325 Mg Tablet) 650 mg PO Q6H PRN PRN Reason: Pain, Mild (Pain Scale 1-3) Docusate Sodium (Docusate Sodium 100 Mg Capsule) 100 mg PO DAILY PRN PRN Reason: Constipation Enoxaparin Sodium (Enoxaparin Sodium 40 Mg/0.4 Ml Syringe) 40 mg SUBCUT Q24H [facility] Last Admin: 09/07/22 16:15 Dose: 40 mg Documented By: BARI Guaifenesin (Guaifenesin 200 Mg/10 Ml 10 Ml Liquid) 10 ml PO Q4H PRN PRN Reason: Cough Piperacillin Sod/Tazobactam (Sod 3.375 gm/ Sodium Chloride) 50 mls @ 100 mls/hr IV Q6H [facility] Last Infusion: 09/08/22 11:40 Dose: 0 mls/hr Documented By: MORE Ondansetron HCl (Ondansetron Hcl 4 Mg/2 Ml Vial) 4 mg IVPUSH Q8H PRN PRN Reason: Nausea and Vomiting Sodium Chloride (0.9 % Sodium Chloride Flush 3 Ml Syringe) 3 ml IVFLUSH QSHIFT [facility] Last Admin: 09/08/22 11:05 Dose: 3 ml Documented By: MORE Labs 09/07/22 06:37 09/07/22 06:37 Assessment and Plan (1) Acute metabolic encephalopathy: Status: Acute (2) Acute hypoxemic respiratory failure: Status: Acute (3) Multifocal pneumonia: Status: Acute (4) Hypokalemia: Status: Acute Plan 82F PMH alzheimers dementia,DM2, urinary incontinence, osteoporosis, vitamin b12 deficiency, htn, hld, gerd, djd, cad, unspecified heart failure, mood disorder, presented with sob sepsis, acute metabolic encephalopathy, and Acute hypoxemic respiratory failure 2/2 multifocal pneumonia likely 2/2 aspiration EVP MARKETING following, advance diet to NDD1 continue iv zosyn DC maintence fluids cultures negative wean o2 as tolerated UTI 2/2 Pseudomonas growing Pseudomonas in urine 50-100k, likely a colony , covered with Zosyn though on Abx hypokalemia replace, monitor recently diagnosed lung cancer outpatient follow up DM insulin, pocs HTN- bp soft hold antihypertensives in setting of sepsis CAD/Cardiomyopathy, unspecified type monitor for fluid overload Alzheimers dementia/mood disorder monitor for delerium DVT prophylaxis - lovenox DNR/DNI reason for continued hospitalization:hypoxia, infection pending safe discharge plan Time Spent With Patient Time: Total time managing care of this patient today ____ minutes. Quality Stroke Does the patient have a stroke diagnosis?: No VTE Prior VTE?: No VTE Risk Level:: Medical - moderate - high VTE Device Contraindication: Treatment Not Indicated VTE Drug Contraindication: N/A - Med Ordered
[2022-09-08 15:30] VITALS: BP 136/65; PULSE 79; RESP 20; TEMP 37.1; O2SAT 100
[2022-09-08] MEDS: Enoxaparin Sodium 40 MG/0.4 ML SYRINGE SUBCUT (16:37)
[2022-09-08] MEDS: Metoprolol Tartrate 25 MG TABLET PO ×2 (18:12→20:34)
--- NOTE | 2022-09-08 18:20 | PM.EVENT ---
Event Note Date of Service: 09/08/22 Event Note: called by RN 9 beats of VT no symptoms, BP stable plan: check K/Mg, continue metoprolol 25 mg bid as ordered Time Spent With Patient Time: Total time managing care of this patient today ____ minutes.
[2022-09-08 19:10] VITALS: BP 136/67; PULSE 102; RESP 20; TEMP 36; O2SAT 92
[2022-09-08 19:14] LABS: Anion Gap 11 (12-20); Blood Urea Nitrogen 15 mg/dL (9-16); Calcium 9.2 mg/dL (8.4-10.2); Carbon Dioxide 29 mmol/L (22-29); Chloride 107 mmol/L (96-108); Creatinine Clr Calc Pharmacy 33.7; Estimated Glomerular Filt Rate 57; Glucose Random 173 mg/dL (60-115); Magnesium 1.8 mg/dL (1.6-2.6); Potassium 3.3 mmol/L (3.3-5.1); Sodium 144 mmol/L (135-145)
[2022-09-08 23:50] VITALS: BP 126/66; PULSE 67; RESP 18; TEMP 37.1; O2SAT 92
[2022-09-09 03:33] VITALS: BP 115/57; PULSE 115; RESP 20; TEMP 36.8; O2SAT 93
[2022-09-09] MEDS: Piperacillin Sodium/Tazobactam 3.375 GM in 0.9 % Sodium Chloride 50 ML IV ×2 (04:28→09:41)
[2022-09-09 07:11] LABS: Glucose, Whole Blood 127 mg/dL (60-115)
[2022-09-09 07:27] VITALS: BP 121/59; PULSE 77; RESP 20; TEMP 37; O2SAT 92
[2022-09-09 08:31] LABS: Anion Gap 13 (12-20); Blood Urea Nitrogen 13 mg/dL (9-16); Carbon Dioxide 29 mmol/L (22-29); Chloride 108 mmol/L (96-108); Creatinine Clr Calc Pharmacy 39.6; Estimated Glomerular Filt Rate > 60; Glucose Random 114 mg/dL (60-115); Potassium 3.4 mmol/L (3.3-5.1); Sodium 147 mmol/L (135-145)
[2022-09-09] MEDS: Metoprolol Tartrate 25 MG TABLET PO (09:40)
[2022-09-09] MEDS: 0.9 % Sodium Chloride Flush 3 ML SYRINGE IVFLUSH (09:45)
--- NOTE | 2022-09-09 10:28 | PM.DS ---
DS: Providers Provider Date of Service: 09/09/22 Date of admission: 09/04/22 15:06 Primary care physician: Trey Rincon III, MD DS: Diagnosis Discharge Diagnosis (1) Acute metabolic encephalopathy: Status: Acute (2) Acute hypoxemic respiratory failure: Status: Acute (3) Multifocal pneumonia: Status: Acute (4) Hypokalemia: Status: Acute DS: Summary Hospital Course Hospital Course: Admission note HPI 82 year old female with history alzheimers dementia, diet controlled insulin dependent type 2 diabetes, urinary incontinence, vitamin b12 deficiency, htn, hld, gerd, djd, cad, unspecified heart failure, mood disorder, drop foot presented to the ED from [facility] where she resides after being found unresponsive. Per [facility] staff patient has had difficulty breathing with GCS7 on arrival (arousable only to painful stimuli). Per EMS was 71% on RA and placed on NRB without improvement and switched to BVM for mechanical ventilation. She did also have short run of NSVT on monitor per EMS. According to [facility] staff patient had recent fever. On my exam, patient is somnolent and arousable only to sternal rub and loud voice btu quickly falls back to sleep. History obtained from ED staff. On arrival, patient placed on CPAP. She was febrile to 100.4, tachycardic to 105, tachypneic to 38. She did briefly desaturate to 85% on CPAP, but has since been weaned to 3L NS maintaining oximetry 90-95%. ED provider did have conversation with pt HCP and patient has been made DNR/DNI. There is no leukocytosis but bandemia 52%. Initial VBG with pH 7.42, pCO2 46, pO2 71, HCO3 30. Renal function and elctrolytes normal. Glucose 200. BNP 107, trop 3.6. UA with 3+ leuks, negative nitrites, 1+ blood, +urinary sediment, negative bacteria. Rodriguez catheter was inserted for fluid management. Negative for COVID 19 and influenza. CXR shows airspace opacities in the right mid and lower lung and retrocardiac region suspicious for infiltrates. Subsequent CTA chest was negative for PE without evidence of aortic aneurysm or dissection btu showed RLL and BLL dependent basilar infiltrates as well as abnormal reactive bilateral hilar and mediastinal lymph nodes. In the ED was diuresed with 40mg IV lasix and given 1L IV NS, 1g IV rocephin, 3.375g zosyn. Hospital course The patient was admitted for treatment of sepsis and acute metabolic encephalopathy with Acute hypoxemic respiratory failure as a result of multifocal pneumonia from aspiration. the patient was started on IV zosyn, cough meds and O2 supplement with good response over the course of hospital stay as blood cultures came back negative. evaluated by RN PRACTITIONER team who recommended to advance diet to NDD1 with Honey thick liquids. weaned down to RA with O2 sat in 90s. Found to have an evidence of Pseudomonas in urine of 50-100k, which could be a colony , covered with Zosyn for 5 days. hypokalemia on admission. replaced and corrected. Plan on DC: Pureed NDD1 with Honey thick liquids Continue antibiotics as prescribed aspiration precautions Time Spent with Patient Time attestation: Total time managing care of this patient today ____ minutes. Discharge coordination time: Greater than 30 minutes Quality: Safe Use of Opioids Does Pt have an Active Cancer Diagnosis on the Problem List?: No Quality: Stroke Does the patient have a stroke diagnosis?: No Physical Exam Vital Signs: Vital Signs: Last Vital Signs Temp 98.6 F 09/09/22 07:27 Pulse 77 09/09/22 07:27 Resp 20 09/09/22 07:27 BP 121/59 L 09/09/22 07:27 Pulse Ox 92 09/09/22 07:27 O2 Del Method Room Air 09/09/22 07:27 O2 Flow Rate 1 09/08/22 15:30 BMI result Body Mass Index 22.4 Const: Other: Constitutional : Awake, interactive, not in distress Neck : Normal inspection, Supple Cardiovascular : RRR, no JVP, no lower extremity edema Respiratory : fair bilateral air entry, resolving basal crackles, on RA Gastrointestinal: soft, lax, Normal bowel sounds, Non tender Skin : Warm, Dry Neurological : Alert & oriented to self, No focal deficit DS: Data Data Completed and Pending Labs on day of discharge: Laboratory Results - last 24 hr 09/08/22 09/09/22 09/09/22 18:31 06:40 07:00 Sodium 144 147 H Potassium 3.3 3.4 Chloride 107 108 Carbon Dioxide 29 29 Anion Gap 11 L 13 BUN 15 13 Creatinine 0.94 0.80 Estim Creat Clear Calc 33.7 39.6 Estimated GFR 57 > 60 POC Glucose 127 H Random Glucose 173 H 114 Calcium 9.2 9.0 Magnesium 1.8 Imaging Chest x-ray: Radiologist's impression: ITS Impressions Chest X-Ray 09/04/22 07:45 IMPRESSION: Airspace opacities in the right mid and lower lung, and in the retrocardiac region suspicious for infiltrates. Chest CTA 09/04/22 09:30 IMPRESSION: No evidence of PE. No evidence of aortic aneurysm or dissection. Right lower lobe lobe and bilateral lower lobe dependent basilar infiltrates. Abnormal reactive bilateral hilar and mediastinal lymph nodes. VTE: negative Discharge Plan Discharge Anticipated Discharge Date/Time: 09/09/22 10:22 Patient Disposition: Xfer Other Discharge Diagnosis: Aspiration pneumonia Referrals: Trey Rincon III, MD [Primary Care Provider] - 1 Week Discharge Medications: New amoxicillin-pot clavulanate 400-57 mg/5 mL suspension for reconstitution 10 ml PO BID 5 Days Qty: 100 0RF Continued atorvastatin 20 mg tablet 1 tab PO BEDTIME omeprazole 20 mg capsule,delayed release(DR/EC) 20 mg PO DAILY alendronate 70 mg tablet 1 tab PO BURRIS amlodipine 5 mg tablet 1 tab PO DAILY paroxetine HCl 30 mg tablet 1 tab PO DAILY metformin 500 mg tablet extended release 24 hr 500 mg PO BID@0800,1700 carvedilol 12.5 mg Tablet 12.5 mg PO BID Rx Instructions: must administer with a meal/food aspirin 81 mg Tablet,Delayed Release (Dr/Ec) 81 mg PO DAILY loratadine [Claritin] 10 mg Tablet 10 mg PO DAILY magnesium oxide 400 mg magnesium Tablet 400 mg PO BID calcium carbonate-vitamin D3 600 mg-5 mcg (200 unit) Tablet 1 tab PO DAILY ascorbic acid (vitamin C) 500 mg Tablet 500 mg PO DAILY acetaminophen 325 mg Tablet 650 mg PO Q6H PRN (Reason: Pain) polyethylene glycol 3350 17 gram Powder In Packet 17 g PO DAILY PRN (Reason: Constipation) risperidone 0.5 mg tablet 0.5 mg PO DAILY@1600 Discontinued methenamine hippurate 1 gram tablet 1 g PO BID@0800,1700 Discharge Orders: Discharge Order (Routine); Ordered 09/09/22 Ordered By: Olu Mcarthur Diet: Pureed with Honey thick Activity on Discharge: As tolerated Stand Alone Forms: Patient Portal Discharge page Care Plan Goals: Read below Health Concerns: Read below Plan of Treatment: Read below Assessment: You were treated for aspiration pneumonia with IV antibiotics with good response over the course of hospital stay. your mental status improved with holding some of your home medicaitons as well. You were evaluated by speech therapist who recommended modified diet of pureed and honey thick liquids to prevent further aspiration. Pureed NDD1 with Honey thick liquids Continue antibiotics as prescribed aspiration precautions Discharge Date/Time: 09/09/22 15:54
--- NOTE | 2022-09-09 10:45 | MHC.CM.PN ---
Addendum entered by Ronel Hill 09/09/22 14:31: ANGY RECEIVED ANOTHER CALL FROM ADRIEN WHO REPORTS [facility] DOES NOT HAVE THE PTS MEDICATION SHE REQUESTED THE SCRIPT BE SENT TO [facility] ON [facility] IN [place] AND REPORTS SHE HAS CALLED AND CONFIRMED THEY HAVE THE MED SENT SCRIPT TO [facility] Addendum entered by Ronel Hill 09/09/22 14:13: MED ORDERS FROM RECEIVED, SIGNED BY , AND RETURNED ADRIEN AT [facility] HAS CONFIRMED THEY HAVE EVERYTHING THEY NEED FOR PTS RETURN TRANSPORT IS SET FOR 1430 BASED ON BLS AVAILABILITY VM LEFT FOR PTS HCP, TIFFANYHarsh MARTI [phone] INFORMING HIM OF DC AND MEDICARE RIGHTS Addendum entered by Ronel Hill 09/09/22 11:22: ADRIEN CALLED T/W BACK INDICATING SHE WOULD BE SENDING THE MED ORDER SHEETS SOON AND ASKING THAT PT MEDS BE SENT TO [facility] AT [address] [place] [address]. MD WILL RESEND RX Original Note: PT MD, PT IS READY TO DC AND IS NO LONGER REQUIRING O2. ANGY SPOKE WITH ANSHUL JURADO, AT PTS , WHO REQUESTED THE PTS DCS AND MED LIST BE FAXED TO HER AT [phone] SHE INDICATED SHE WOULD COMPLETE THE PTS MED REC ONCE THESE THINGS WERE RECEIVED, SHE WILL THEN FAX BACK PTS MED ORDERS TO BE SIGNED BY THE MD. SHE ALSO STATED IF SHE COULD NOT GET THESE THINGS COMPLETED BY 12-1230, THEY WOULD BE UNABLE TO TAKE THE PT BACK TODAY. DCS AND MED LIST FAXED AT 1045 HOURS ADRIEN WILL CALL T/W BACK ONCE SHE FAXES THE MED ORDERS PT WILL NEED BLS TRANSPORT WHICH HAS BEEN TENTATIVELY BOOKED FOR 1500 HOURS
[2022-09-09 11:09] LABS: Glucose, Whole Blood 172 mg/dL (60-115)
[2022-09-09 11:16] VITALS: BP 127/60; PULSE 68; RESP 20; TEMP 36.4; O2SAT 94
[2022-09-09 11:49] LABS: Magnesium 1.9 mg/dL (1.6-2.6)
--- NOTE | 2022-09-09 13:45 | MHC.SLORD ---
Speech Language Pathology Order Status: SURGICAL SERVICES DIRECTOR attempted to see pt for dysphagia tx. Pt sleeping this morning, did not participate in trials. Pt has reportedly been tolerating modified diet- Recommend continue with pureed solids (NDD1)/honey thick liquids (VIA [facility] ONLY), crushed pills, 1:1 assistance & aspiration precautions.
== END 2022-09-09 15:54 | disposition other institution (70) | DRG 871 ==
LOC: HO.ED 07:59 → HO.EDOVER 15:12 → HO.IMC 15:52
PROVIDERS: Family Medicine; Internal Medicine; Admitting Provider Physician Assistant; Emergency Provider Internal Medicine; PCP Internal Medicine; Visit Provider Student in an Organized Health Care Education/Training Program
DX: A41.9 Sepsis, unspecified organism (principal); G93.41 Metabolic encephalopathy; J96.01 Acute respiratory failure with hypoxia; J69.0 Pneumonitis due to inhalation of food and vomit; N39.0 Urinary tract infection, site not specified; I42.9 Cardiomyopathy, unspecified; G30.9 Alzheimer's disease, unspecified; F02.80 Dementia in other diseases classified elsewhere, unspecified severity, without behavioral disturbance, psychotic disturbance, mood disturbance, and anxiety; Z66 Do not resuscitate; E11.9 Type 2 diabetes mellitus without complications; E87.6 Hypokalemia; F41.8 Other specified anxiety disorders; K21.9 Gastro-esophageal reflux disease without esophagitis; B96.5 Pseudomonas (aeruginosa) (mallei) (pseudomallei) as the cause of diseases classified elsewhere; I25.10 Atherosclerotic heart disease of native coronary artery without angina pectoris; E78.5 Hyperlipidemia, unspecified; Z20.822 Contact with and (suspected) exposure to COVID-19; Z79.82 Long term (current) use of aspirin; Z79.84 Long term (current) use of oral hypoglycemic drugs; Z79.899 Other long term (current) drug therapy
CPT/HCPCS: 36415; 71045; 71275; 80048; 80053; 81001; 81003; 82803; 82947; 83605; 83735; 83880; 84484; 85007; 85025; 85027; 85610; 85730; 87040; 87086; 87088; 87186; 87502; 87635; 92526; 92610; 93005; 99285; C1758; J0692; J0696; J1650; J1940; J2543; Q9967